=== PATIENT | male | born 1950 | race Caucasian/White ===

== ENCOUNTER 2017-08-02 08:32 | Outpatient (CLI) | payer MEDICARE ==
[2017-08-02] MEDS ORDERED: Iopamidol 370 76% 100 ML VIAL ONE (09:00)
[2017-08-02 09:35] LABS: Estimated GFR-MDRD - POC Greater than 90
--- NOTE | 2017-08-02 11:54 | CT ---
CT ABDOMEN WITH AND WITHOUT IV CONTRAST CT PELVIS WITH AND WITHOUT IV CONTRAST: DATE: 08/02/17. HISTORY: Bilateral back pain more severe on the right with hematuria. CONTRAST: 99 mL of Isovue 370 IV contrast. COMPARISON: None available. FINDINGS: There is a calcified granuloma at the left lung base. Postsurgical changes of the stomach are noted which may relate to gastric sleeve procedure. There are subcentimeter too small to characterize hypodense lesions in each kidney. There is an appr oximately 1.4 cm calculus seen within an infundibulum in the mid portion of the right kidney with rox yceal dilatation at the level of the calculus. There is also a punctate nonobstructing calculus in t he inferior pole right kidney. No ureteral calculus is visualized bilaterally. Urinary bladder is d ecompressed but otherwise grossly normal in appearance. There is no hydronephrosis present on the le ft. The liver, spleen, pancreas, bilateral adrenal glands, abdominal aorta, and urinary bladder demonstra te a normal CT appearance. There is mild dilatation of the common iliac artery which measures 2 cm. The right common iliac albin ry is ectatic. There is minimal calcification seen in the femoral arteries. There is colonic diverticulosis. There is a small fat-containing umbilical hernia. The distal porti on of the appendix extends into the small umbilical hernia. However, the appendix is normal in calib er and there are no CT findings to suggest appendicitis. There is no free fluid, fluid collection, or lymphadenopathy seen in the abdomen or pelvis. IMPRESSION: 1. Calculus within a mid portion right renal infundibulum which results in subsequent mild calyceal dilatation. This calculus measures 1.4 cm. There are a few punctate nonobstructing calculi seen wit hin the mid portion inferior pole right kidney. 2. Subcentimeter too small to characterize hypodense lesions in each kidney. 3. No ureteral calculus is seen. 4. Colonic diverticulosis. 5. Small predominantly fat-containing umbilical hernia, but the appendix does extend into the hernia defect without CT evidence of appendicitis. 6. Mild dilatation of the left common iliac artery with ectasia of the right common iliac artery. 7. Colonic diverticulosis. POS: [facility]
== END 2017-08-02 08:33 | disposition home or self-care (01) ==
LOC: SCSCT 08:32
PROVIDERS: ATTEND Family Medicine
DX: N30.01 Acute cystitis with hematuria (principal); N20.0 Calculus of kidney; K42.9 Umbilical hernia without obstruction or gangrene; K57.30 Diverticulosis of large intestine without perforation or abscess without bleeding; N28.9 Disorder of kidney and ureter, unspecified
CPT/HCPCS: 74178

== ENCOUNTER 2017-08-13 17:51 | Emergency (ER) | payer MEDICARE | END 2017-08-13 18:55 | disposition home or self-care (01) | LOC: SCSER 17:51 | DX: J11.1 Influenza due to unidentified influenza virus with other respiratory manifestations (principal); I10 Essential (primary) hypertension; J44.9 Chronic obstructive pulmonary disease, unspecified; F17.220 Nicotine dependence, chewing tobacco, uncomplicated; Z79.899 Other long term (current) drug therapy | CPT/HCPCS: 99283 ==

== ENCOUNTER 2018-02-07 15:11 | Outpatient (CLI) | payer MEDICARE ==
--- NOTE | 2018-02-07 18:36 | MRI ---
MRI LUMBAR SPINE NONCONTRAST: HISTORY: Back pain. Compression fracture. FINDINGS: Since the prior study of 07/31/2016, compression of the L5 vertebral body has occurred, with loss of height by approximately 30%. Increased T2 signal and diminished T1 signal is present throughout the vertebral body, without extension into the pedicles. No significant retropulsion compared to the oth er lumbar levels. Partial chronic compressions of the other lumbar vertebral bodies are stable. T12-L1: Osteophytosis. The central canal and neural foramina are patent. L1-L2: Posterior disk bulge and circumferential degenerative changes. Moderate stenosis of the cent ral canal. Mild stenosis of each neural foramen. L2-L3: Disk space narrowing. Posterior disk bulge and circumferential degenerative changes with sev ere stenosis of the central canal. Severe right and moderate left foraminal stenosis. L3-L4: Posterior disk bulge, Circumferential degenerative changes with severe stenosis of the centr al canal and each neural foramen. L4-L5: Posterior disk bulge. Circumferential degenerative changes with mild stenosis of the central canal and severe stenosis of each neural foramen. L5-S1: Minimal disk bulge. The thecal sac is patent. Degenerative changes with severe stenosis of each neural foramen. IMPRESSION: 1. Acute compression deformity of the L5 vertebral body. Other lumbar vertebral body compressions a re stable and chronic appearing. 2. Prominent multilevel degenerative changes throughout the lumbar spine, including severe central c anal and foraminal stenosis, as detailed above. POS: [facility]
== END 2018-02-07 15:12 | disposition home or self-care (01) ==
LOC: MRI 15:11
PROVIDERS: ATTEND Anesthesiology Pain Medicine
DX: S32.050A Wedge compression fracture of fifth lumbar vertebra, initial encounter for closed fracture (principal); M47.896 Other spondylosis, lumbar region; M48.061 Spinal stenosis, lumbar region without neurogenic claudication; M99.83 Other biomechanical lesions of lumbar region; M47.897 Other spondylosis, lumbosacral region
CPT/HCPCS: 72148

== ENCOUNTER 2018-02-10 20:49 | Emergency (ER) | payer MEDICARE ==
[2018-02-10 21:26] LABS: #Basophils 0.1 thou/uL (0.0-0.2); #Eosinphils 0.3 thou/uL (0.0-0.7); #Lymphocytes 1.3 thou/uL (1.20-3.40); #Monocytes 0.4 thou/uL (0.11-0.59); %Basophils 1.8 % (0.0-1.0); %Lymphocytes 32.2 % (21.0-51.0); %Monocytes 9.8 % (0.0-10.0); %Neutrophils 49.2 % (42.0-75.0); Hemoglobin 14.3 g/dL (14.0-18.0); Mean Corpuscular HGB CONC 35.1 g/dL (32.0-36.0); Mean Corpuscular Hemoglobin 30.9 pg (27.0-31.0); Mean Platelet Volume 8.1 fL (7.4-10.4); Platelet Count 166 thou/uL (130-400); RBC Distribution Width 11.4 % (11.5-14.5); Red Blood Cell (RBC) Count 4.63 mill/uL (4.70-6.10)
[2018-02-10 21:38] LABS: Anion Gap 14 mmol/L (10-20); BUN (Urea Nitrogen) 8 mg/dL (8.4-25.7); Calc. Creatinine Clearance 0 mL/min (70-130); Carbon Dioxide 24 mmol/L (23-31); Chloride 107 mmol/L (98-107); Estimated GFR-MDRD Greater than 90; Glucose 78 mg/dL (80-115); Potassium 3.5 mmol/L (3.5-5.1); Sodium 141 mmol/L (136-145)
--- NOTE | 2018-02-10 22:39 | ULT ---
BILATERAL LOWER EXTREMITY VENOUS DOPPLER ULTRASOUND: 02/10/18 HISTORY: Swelling, pain, edema and redness in the lower extremity bilaterally . FINDINGS: There is good flow, compression, and augmentation noted in the left common femoral, femoral, deep fem oral, popliteal, posterior tibial and greater saphenous veins. There is partial compression with trickle flow in the right proximal vein due to intermittent thrombu s. The remainder of the deep venous system of the right lower extremity is otherwise patent. IMPRESSION: DVT in the right lower extremity. ER physician, Dr. Fer Hickman was notified of the results at 10:30 p.m. POS: [facility]
[2018-02-10] MEDS ORDERED: Apixaban 5 MG TAB ONE (22:42)
== END 2018-02-10 22:54 | disposition home or self-care (01) ==
LOC: SCSER 20:49
DX: I82.411 Acute embolism and thrombosis of right femoral vein (principal); I10 Essential (primary) hypertension; J44.9 Chronic obstructive pulmonary disease, unspecified; F17.220 Nicotine dependence, chewing tobacco, uncomplicated; Z79.899 Other long term (current) drug therapy
CPT/HCPCS: 36415; 80048; 83880; 85025; 93970

== ENCOUNTER 2018-04-07 13:39 | Outpatient (CLI) | payer MEDICARE ==
--- NOTE | 2018-04-07 14:58 | CT ---
CT CHEST WITHOUT CONTRAST: Date: 04-07-18 Provided Clinical History: Right upper lobe mass. FINDINGS: Comparison is made with the study dated 02-26-18. The heart, pericardium, and great vessels are suboptimally evaluated in the absence of IV contrast ma terial but demonstrate an unremarkable, unenhanced CT appearance with the exception of vascular calci fication including coronary calcium. Evaluation for thoracic lymph node enlargement is limited, witho ut gross evidence for such. Primarily pleural based opacity is present at the left lung apex. The consolidation and interstitial opacity seen within the left upper lobe on the prior examination has much improved. There is gas dens ity present at the left lung apex, presumably in the region of the pleura and may reflect pre-existin g bullous change with surrounding infection. Emphysematous changes are again noted at both lung apice s. There has been interval resolution of the left pleural effusion. There is no right pleural fluid. The visualized portions of the upper abdomen demonstrate an unchanged CT appearance. The osseous structures demonstrate no concerning lytic or blastic lesions. IMPRESSION: 1. Interval improvement in the pleural and parenchymal opacity at the left lung apex presumably refle cting a resolving infectious process. Atypical infectious etiologies such as TB should be considered. 2. Interval resolution of left pleural effusion. POS: [facility]
== END 2018-04-07 13:40 | disposition home or self-care (01) ==
LOC: BICCT 13:39
PROVIDERS: ATTEND Internal Medicine Critical Care Medicine
DX: R91.8 Other nonspecific abnormal finding of lung field (principal); J18.9 Pneumonia, unspecified organism
CPT/HCPCS: 71250

== ENCOUNTER 2018-06-07 10:06 | Outpatient (CLI) | payer MEDICARE ==
--- NOTE | 2018-06-07 15:39 | RAD ---
THREE VIEWS RIGHT WRIST: INDICATIONS: Pain. FINDINGS: There is evidence of prior ulnar styloid avulsion. Plate and screw fixation is present at the distal radius. No acute hardware complication is visualized. There is skeletal demineralization. IMPRESSION: Postoperative and posttraumatic right wrist. No definite acute process is seen. POS: [facility]
== END 2018-06-07 10:07 | disposition home or self-care (01) ==
LOC: SCSRAD 10:06
PROVIDERS: ATTEND Family Medicine
DX: M25.531 Pain in right wrist (principal); Z98.890 Other specified postprocedural states

== ENCOUNTER 2018-06-18 16:57 | Inpatient (IN) | payer MEDICARE ==
[~2018-06-18 16:57] MED LIST: Iopamidol 370 76% 100 ML VIAL ONE
[2018-06-18] MEDS ORDERED: methylPREDNISolone Sod Succ/PF 125 MG/2 ML VIAL ONE (17:22)
--- NOTE | 2018-06-18 17:36 | RAD ---
PORTABLE AP CHEST X-RAY 06/18/18 HISTORY: Dyspnea, low grade fever and cough and decreased appetite. COMPARISON: 03/01/18. FINDINGS: The cavitary lesion within the left upper lung zone and left lung apex has resolved. There is pleural based density at the left lung apex which could be related to pleural and parenchymal scarring now p resent in this region. The right lung is clear. There is minimal atelectasis versus scarring at the l eft lung base. The cardiac silhouette and pulmonary vasculature are within normal limits. No other in terval change. IMPRESSION: Resolution of cavitary lesion in the left lung apex with pleural based density at the left lung apex on the current study which may be related to pleural and parenchymal scarring. There is otherwise no acute cardiopulmonary process. POS: [facility]
[2018-06-18 17:42] LABS: Band 29 % (5-11); Lymphocytes 10 % (21-51); MDiff Complete? YES; Mean Corpuscular HGB CONC 33.1 g/dL (32.0-36.0); Mean Corpuscular Hemoglobin 29.2 pg (27.0-31.0); Mean Corpuscular Volume 88.3 fL (78.0-98.0); Mean Platelet Volume 7.7 fL (7.4-10.4); Monocytes 7 % (0-10); Neutrophil 52 % (42-75); PLT Morphology Comment Appears Adequate; Platelet Count 201 thou/uL (130-400); RBC Distribution Width 11.9 % (11.5-14.5); Reactive Lymphocytes 2 % (0-10); Red Blood Cell (RBC) Count 6.17 mill/uL (4.70-6.10); White Blood Cell (WBC) Count 14.2 thou/uL (4.8-10.8)
[2018-06-18 17:43] LABS: ALT (SGPT) 22 U/L (8-55); AST (SGOT) 53 U/L (5-34); Albumin 3.9 g/dL (3.4-4.8); Alkaline Phosphatase 62 U/L (40-150); Anion Gap 16 mmol/L (10-20); BUN (Urea Nitrogen) 21 mg/dL (8.4-25.7); Bilirubin, Total 0.8 mg/dL (0.2-1.2); CK (CPK) 648 U/L (30-200); Calc. Creatinine Clearance 0 mL/min (70-130); Carbon Dioxide 29 mmol/L (23-31); Chloride 99 mmol/L (98-107); Estimated GFR-MDRD 75; Globulin 3.5 g/dL (2.4-3.5); Glucose 98 mg/dL (80-115); Potassium 3.8 mmol/L (3.5-5.1); Protein, Total 7.4 g/dL (5.8-8.1); Sodium 140 mmol/L (136-145)
[2018-06-18 17:44] LABS: CKMB 21.3 ng/mL (0-6.6)
[2018-06-18 19:05] LABS: Bilirubin Negative (Negative); Blood, Urine Large (Negative); Clarity Cloudy (Clear); Glucose, Urine (Dipstick) Negative (Negative); Leukocyte Negative (Negative); Nitrite Negative (Negative); Protein, Urine (Dipstick) 100 mg/dL (Neg-Trace); Urobilinogen 0.2 mg/dL (0.2-1.0); pH, Urine 5.5 (5.0-9.0)
[2018-06-18 19:07] LABS: Specific Gravity, Urine Greater than 1.035 (1.002-1.036)
[2018-06-18 19:12] LABS: Bacteria/HPF 2+ HPF (None Seen); Hyaline Casts/LPF 0-3 HYALINE CAST LPF (0-3 Hyaline); Other Casts/LPF 0-3 FINELY GRAN LPF (0-3 Hyaline); RBC/HPF GREATER THAN 50-TNTC HPF (0-3); Squamous Epithelial 0-3 HPF (0-3)
[2018-06-18 19:13] LABS: Renal Epithelial 0-3 HPF (0-3)
--- NOTE | 2018-06-18 19:35 | CT ---
CT ANGIOGRAM THORAX WITH IV CONTRAST AND 3D RECONSTRUCTIONS CT ABDOMEN AND PELVIS WITH IV CONTRAST 06/18/18 HISTORY: Dyspnea, diarrhea and low grade fever as well as cough and decreased appetite. Right sided pain after a fall one day ago. COMPARISON: CT thorax on 04/07/18. CT ANGIOGRAM THORAX: There is consolidation present at the right lung base with patchy densities and areas of consolidatio n at the left lung base. Findings may be related to aspiration pneumonitis or bibasilar pneumonia and atypical pneumonia is possibility. The pleural and parenchymal changes in the left lung apex are aga in seen, but the previously seen area of cavitation is no longer visualized. Residual pleural and par enchymal changes could be related to pleural and parenchymal scarring. Emphysematous changes are again seen within the upper lobes bilaterally. No filling defects are seen in the pulmonary arteries to suggest a pulmonary embolus. The thoracic ao rta is normal in caliber without evidence of an aortic dissection. Calcified mediastinal and left hilar lymph nodes are present related to prior granulomatous disease. There is evidence of a small hiatal hernia. Postsurgical changes of the stomach are noted which may b e related to prior gastric sleeve procedure. No enlarged lymph nodes are seen by CT size criteria. No other interval change from prior exam. CT ABDOMEN AND PELVIS: Postsurgical changes of the stomach are seen which may be related to gastric sleeve procedure. Small hiatal hernia is present. Several subcentimeter too small to characterize hypodense lesions are seen in each kidney. There is a calculus measuring 14 mm in the right renal pelvis. No hydronephrosis is present, although there is minimal caliectasis in the inferior pole right kidney. The liver, spleen, pancreas, bilateral adrenal glands, and urinary bladder demonstrate a normal CT ap pearance. There is colonic diverticulosis present. The cecum extends to the midline at the level of the umbilicus. The appendix is visualized and normal in caliber. Loops of small bowel are normal in caliber. Minimal vascular calcifications are seen in the abdominal aorta as well as involving the visualized f emoral arteries. No free fluid, fluid collection, or lymphadenopathy is seen in the abdomen or pelvis. Multilevel degenerative changes are seen in the spine. There is height loss involving the L2 through L5 vertebral bodies, but this finding was seen on prior CT of the lumbar spine on 07/19/16, but the deg ree of height of the L5 vertebral body has increased from that exam. IMPRESSION: 1. Bibasilar patchy densities as well as areas of consolidation. Findings may be related to biba silar pneumonia and atypical pneumonia is a possibility. There are filling defects seen within a few right lower lobe bronchi and subsequent aspiration pneumonitis is a possibility. 2. Improvement in pleural and parenchymal change at the left lung apex and previously noted gas density in the cavitary lesion has resolved with only a punctate focus of gas density now present. Th e findings may be related to residual changes with pleural and parenchymal scarring on the current st udy. 3. COPD. 4. No acute findings in the abdomen or pelvis. 5. Calculus right renal pelvis measuring 1.4 cm. 6. Subcentimeter too small to characterize hypodense lesions in each kidney. 7. Postsurgical change of the stomach. There is evidence of a small hiatal hernia. 8. Colonic diverticulosis. 9. Vertebral body height loss related to compression fractures involving the L2 through L5 verte bral bodies. The degree of height loss at the L5 vertebral body has increased from this study on . POS: [facility]
[2018-06-18] MEDS ORDERED: Acetaminophen 325 MG TAB PO PRN (20:32)
[2018-06-18] MEDS ORDERED: Prevnar 13-Val Conj/PF 0.5 ML SYRINGE IM ONE (21:00)
[2018-06-18] MEDS: Sodium Chloride 0.9% 1,000 ML IV SCH (21:45)
[2018-06-19] MEDS ORDERED: Ondansetron PF 4 MG/2 ML Vial IVP PRN
[2018-06-19] MEDS: Sodium Chloride 0.9% 1,000 ML IV SCH (04:08)
[2018-06-19 06:20] LABS: Anion Gap 8 mmol/L (10-20); BUN (Urea Nitrogen) 16 mg/dL (8.4-25.7); Calc. Creatinine Clearance 145 mL/min (70-130); Carbon Dioxide 28 mmol/L (23-31); Chloride 105 mmol/L (98-107); Estimated GFR-MDRD Greater than 90; Glucose 139 mg/dL (80-115); Potassium 3.6 mmol/L (3.5-5.1); Sodium 137 mmol/L (136-145)
[2018-06-19 08:03] LABS: #Lymphocytes 0.7 thou/uL (1.20-3.40); #Monocytes 0.2 thou/uL (0.11-0.59); #Neutrophils 7.8 thou/uL (1.40-6.50); %Eosinophils 0.2 % (0.0-10.0); %Lymphocytes 7.9 % (21.0-51.0); %Monocytes 1.9 % (0.0-10.0); Hemoglobin 15.1 g/dL (14.0-18.0); Mean Corpuscular HGB CONC 31.3 g/dL (32.0-36.0); Mean Corpuscular Hemoglobin 29.9 pg (27.0-31.0); Mean Corpuscular Volume 95.5 fL (78.0-98.0); Mean Platelet Volume 7.3 fL (7.4-10.4); Platelet Count 191 thou/uL (130-400); RBC Distribution Width 12.2 % (11.5-14.5); Red Blood Cell (RBC) Count 5.04 mill/uL (4.70-6.10); White Blood Cell (WBC) Count 8.7 thou/uL (4.8-10.8)
--- NOTE | 2018-06-19 08:11 | RAD ---
LEFT FOOT RADIOGRAPHS 3 VIEWS: DATE: 06/19/2018. PROVIDED CLINICAL HISTORY: Status post fall. 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 There is a linear radiolu cency seen involving the junction of the navicular and cuboid posteriorly that could reflect an incom plete coalition versus superimposed fracture. There is prominent subtalar degenerative change with p oor definition to the posterior subtalar joint which could reflect fusion. Alignment appears otherwi se anatomic. Joint spaces appear preserved. IMPRESSION: 1. Findings suggesting fusion at the navicular-cuboid relationship with possible superimposed nondis placed fracture. 2. 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 POS: [facility]
[2018-06-19] MEDS: Apixaban 5 MG TAB PO SCH ×2 (08:37→21:43)
[2018-06-19] MEDS: Guaifenesin DM 100-10/5 ML UDCUP PO PRN ×2 (16:45→21:43)
[2018-06-19] MEDS ORDERED: Morphine 4 MG/ML VIAL SLOW IVP PRN (18:23)
--- NOTE | 2018-06-19 18:31 | PDOC.EVN ---
Event Note - Event Note Event Note: Patient inadvertently admitted to [facility] [place] but followed by Dr. Facundo Chisholm. Discussed with Dr. Cho on-call coverage for Dr. Chisholm who accepts transfer of care today.
[2018-06-19] MEDS ORDERED: Acetaminophen 500 MG TAB PO PRN (18:56)
--- NOTE | 2018-06-19 22:24 | HP ---
PRIMARY CARE PROVIDER: Dr. Chisholm. LIFESTYLE CONSULTANT: Dr. George. CODE STATUS: Full code. TIME OF EVALUATION: 10:00 p.m. CHIEF COMPLAINT: Shortness of breath. HISTORY OF PRESENT ILLNESS: This is a 68-year-old male patient with past medical history of COPD and hypertension, came to the hospital after having shortness of breath. Symptoms were severe. No clear triggers, no alleviating factors has been present for the past few days, associated with diarrhea and low-grade fever. The patient reported also green sputum. Symptoms have been gradually worsening. REVIEW OF SYSTEMS: CONSTITUTIONAL: The patient reports recent chills. No fever or generalized weakness. RESPIRATORY: Cough, sputum production that was green, shortness of breath. CARDIOVASCULAR: No chest pain or palpitations. GASTROINTESTINAL: No nausea, no vomiting, diarrhea, or abdominal pain. EXPERIENCE PLANNING STRATEGIST: No dizziness, headache, or feeling lightheaded. GENITOURINARY: No burning on urination. EXTREMITIES: No leg swelling. All other systems were reviewed and negative expect for the findings as mentioned above. PAST MEDICAL HISTORY: As mentioned in HPI. FAMILY HISTORY: Reviewed and noncontributory to current presentation. SOCIAL HISTORY: The patient drinks every day, less than 5 drinks per day. No drug use. The patient has used tobacco. PAST SURGICAL HISTORY: Gastric sleeve, bilateral knee, left graft, left shoulder, heart cath. KNOWN ALLERGIES: No known drug allergies reported. MEDICATIONS: 1. Combivent. 2. Aerosol With Adapter. 3. Eliquis 5 mg 2 tablets 2 times a day. PHYSICAL EXAMINATION: VITAL SIGNS: On presentation, blood pressure 117/81 with heart rate 130, respiratory rate was 32, pain was 10/10, oxygen saturation was 85% on room air. GENERAL APPEARANCE: The patient is alert, oriented, not in acute distress. HEENT: Eyes, normal conjunctivae. Moist oral mucosa. Anicteric. No JVD. RESPIRATORY: Bilateral air entry decreased. The patient has scattered wheezing. No rales. Symmetric expansion. CARDIOVASCULAR: Normal rate, regular rhythm. No murmurs. No gallops. No edema. ABDOMEN: Soft. Normal bowel sounds. MUSCULOSKELETAL: He got baseline range of motion and strength. No tenderness. SKIN: Warm and intact. No pallor. No rash. No redness. EXTREMITIES: Peripheral pulses are present. Capillary refill seems to be intact. NEUROLOGIC: No evidence of any new focal weakness. Baseline speech. Cranial nerves seems to be intact. PSYCHIATRIC: The patient is in good mood. No anxiety. Oriented. Optimal judgement. IMAGING STUDIES: EKG was reviewed. The patient has sinus tachycardia at a rate of 119. No ST elevation. No specific T-wave inversion for ischemia. Chest CT was done which show bilateral pneumonia. No pulmonary embolism. LABORATORY DATA: Labs were reviewed. The patient has white count of 14.2, hemoglobin 18, MCV 88, and platelet count 101. D-dimer 3.48. Chemistries; sodium 140, potassium 3.8, chloride 99, carbon dioxide 28, anion gap 16, BUN 21, creatinine 1.0, GFR 75, glucose 98, lactic acid 1.5, calcium 10. AST 53, ALT 22, alkaline phosphatase 62. CK 348. Troponin 0.04. Beta natriuretic peptide is Albumin-globulin ratio is 1.1. Urine was reviewed; the patient has white count of 11 to 20 and ketones 15. ASSESSMENT AND PLAN: The patient was placed in the hospital with the following medical problems: 1. Bilateral pneumonia. The patient is being started on antibiotics and we will continue for now. We will follow cultures. We will adjust treatment as per sensitivity. 2. Chronic obstructive pulmonary disease exacerbation. The patient has scattered wheezing. The patient has been exacerbated likely secondary to pneumonia. The patient has been started on nebs, antibiotics, and bronchodilators. The patient's is Dr. George, so the patient needed, if needed, he may be consulted. 3. Sepsis. The patient has leukocytosis with tachycardia, tachypnea, and associated with pneumonia. Treatment as above. 4. Positive D-dimer 3.48, likely secondary to infection. Pulmonary embolism has been ruled out with CAT scan. 5. [id number] myocardial infarction, type 2. The patient has troponin of 0.040, likely secondary to underlying hypoxia and pneumonia. 6. Acute hypoxic respiratory failure. The patient was found to be with oxygen saturation in the 80s on room air, needing oxygen by nasal cannula to improve saturation. We will monitor. This is likely secondary to pneumonia. We will treat underlying condition. 7. Urinary tract infection. The patient has positive white count . The patient is started on antibiotics. We will follow cultures, we will adjust treatment as needed. 8. Deep venous thrombosis prophylaxis. 9. Hypertension, it is chronic, controlled, reconcile medications, adjust treatment as needed. We will not treat aggressively due to underlying sepsis and risk for septic shock. Job ID: [id number]
[2018-06-20 00:42] LABS: Troponin I 0.018 ng/mL (< 0.028)
[2018-06-20 06:07] LABS: #Lymphocytes 0.5 thou/uL (1.20-3.40); #Monocytes 0.3 thou/uL (0.11-0.59); #Neutrophils 13.9 thou/uL (1.40-6.50); %Eosinophils 0.2 % (0.0-10.0); %Lymphocytes 3.1 % (21.0-51.0); %Monocytes 1.8 % (0.0-10.0); %Neutrophils 94.9 % (42.0-75.0); Hemoglobin 15.1 g/dL (14.0-18.0); Mean Corpuscular HGB CONC 32.5 g/dL (32.0-36.0); Mean Corpuscular Hemoglobin 30.7 pg (27.0-31.0); Mean Corpuscular Volume 94.6 fL (78.0-98.0); Mean Platelet Volume 7.2 fL (7.4-10.4); Platelet Count 213 thou/uL (130-400); RBC Distribution Width 12.2 % (11.5-14.5); White Blood Cell (WBC) Count 14.7 thou/uL (4.8-10.8)
[2018-06-20 06:47] LABS: Anion Gap 9 mmol/L (10-20); BUN (Urea Nitrogen) 15 mg/dL (8.4-25.7); Calc. Creatinine Clearance 144 mL/min (70-130); Calcium 9.4 mg/dL (7.8-10.44); Carbon Dioxide 28 mmol/L (23-31); Chloride 103 mmol/L (98-107); Estimated GFR-MDRD Greater than 90; Glucose 140 mg/dL (80-115); Potassium 3.6 mmol/L (3.5-5.1); Sodium 136 mmol/L (136-145)
[2018-06-20 06:54] LABS: Troponin I 0.016 ng/mL (< 0.028)
[2018-06-20] MEDS: Apixaban 5 MG TAB PO SCH ×2 (08:35→20:23)
--- NOTE | 2018-06-20 12:09 | PRG ---
DATE OF SERVICE: 06/19/2018 HISTORY OF PRESENT ILLNESS: The patient was admitted to Hospitalist Service. The patient's PCP is Dr. Facundo Chisholm, was handed off to myself today for continuing treatment of patient's pneumonia and COPD exacerbation. The patient with known history of monitored lung nodule with Pulmonary on an outpatient basis, does not appeared to be complicated on this hospital admission, history of DVT, maintained on Eliquis without reports of bleeding. The patient did fall with left great toe pain. The patient denies history of gout. White blood cell count improved overnight to 8.7. D-dimer was elevated, but CT chest did not show any blood clots. Creatinine is 0.62. Blood cultures at 12-hour growth negative. Influenza negative. Foot x-ray reviewed, changes consistent with remote injury. The patient fell in a hole and twisted his ankle quite sometime ago with finding of fusion of navicular-cuboid, could not rule out nondisplaced fracture overlying. The patient's pain is exquisitely to great toe, however. Review of vital signs; temperature is 99.9, pulse of 89, respiratory rate of 17, and oxygen saturation of 92% on 3 L of nasal cannula. The patient is normally on 2 L nasal cannula p.r.n. at night only, not during the day, currently requiring 3 L during the day. PHYSICAL EXAMINATION: GENERAL: The patient is alert and oriented, in no acute distress. HEENT: Head is normocephalic and atraumatic. Extraocular movements are intact. Sclerae white. Oral mucosa is moist. Nasal cannula in place. NECK: Supple. HEART: Regular rate and rhythm. No murmurs are auscultated. LUNGS: Clear to auscultation bilaterally. No rubs or wheezes. Moderate air expansion. ABDOMEN: Soft. Positive bowel sounds throughout. No guarding or rebound. EXTREMITIES: Lower extremities without cyanosis or edema. Left great toe with pain to interphalangeal joint. No pain around bilateral malleoli. The patient states that he has difficulty with weightbearing, but has not done much today, getting in and out of bed and staying on oxygen. ASSESSMENT AND PLAN: 1. Pneumonia. 2. Chronic obstructive pulmonary disease exacerbation. 3. Left great toe pain. 4. History of deep venous thrombosis, status post gait instability and fall. 5. Elevated troponin. The patient continued on antibiotics, steroids, and breathing treatments. We will check uric acid in the morning. The patient denies any formal chest pains. No reported EKG changes. May look at trending troponins. We will hand off to Dr. Facundo Chisholm in the morning. The patient is currently stable. Job ID: [id number]
--- NOTE | 2018-06-20 12:36 | CON ---
DATE OF CONSULTATION: HISTORY OF PRESENT ILLNESS: A 68-year-old gentleman, who sees Dr. George in our office, presented with a several day history of diarrhea after he ate some kind of a meat fadia. He got severe diarrhea, then eventually passed out at home. He has had vague chest pain, difficulty breathing, coughing, and wheezing. Initial chest x-ray did not show any acute infiltrates. His oxygen saturation on room air was 85 when he arrived. Blood pressure was 117/81, pulse was 120, and respiratory rate was 32. He is now admitted. This morning, he said he is feeling better. He was coughing some green sputum yesterday. This morning it is white. Most days he can barely walk 50 feet without getting markedly short of breath. PAST MEDICAL HISTORY: Hypertension, coronary artery disease, and COPD. PAST SURGICAL HISTORY: Bilateral knee, gastric sleeve several years ago, left hip graft, left shoulder surgery, and cardiac cath. SOCIAL HISTORY: Alcohol, 5 drinks a day. Tobacco smoking, quit years ago. Still chews tobacco though. MEDICATIONS: List of medicine from home: 1. Prednisone 20. 2. DuoNeb. 3. Spiriva Respimat. 4. Eliquis 5 twice a day. 5. Since admission, he started on Solu-Medrol, neb treatment, and Levaquin. ALLERGIES: NONE. FAMILY HISTORY: Unremarkable. REVIEW OF SYSTEMS: Otherwise, 10-point negative. PHYSICAL EXAMINATION: VITAL SIGNS: His blood pressure is 114/71, sats are 90 on 4 L, temperature is 97, pulse 91, respirations 20. CHEST: Decreased breath sounds. No wheezing. CARDIAC: Normal S1 and S2. No gallops. ABDOMEN: No masses. IMPRESSION: 1. Chronic obstructive pulmonary disease exacerbation, bronchitis. 2. Diarrhea, probably aggravated by intake of some meat fadia. 3. . 4. Abnormal CT suggestive of chronic bibasilar infiltrates. PLAN: Continue steroids, neb treatments, and antibiotics. We will notify Dr. George. TIME SPENT: This is a consultation note, 70 minutes, of which 50% in direct patient care. Job ID: [id number]
--- NOTE | 2018-06-20 13:19 | PRG ---
DATE OF SERVICE: 06/20/2018 SUBJECTIVE: Mr. Barahona is sitting up in bed. He still complains of some shortness of breath. OBJECTIVE: VITAL SIGNS: O2 saturation 96% on 3 L and temperature 97.6. LUNGS: Bilateral breath sounds. Some wheezing is noted bilaterally. HEART: Reveals a regular rate and rhythm. No murmurs, gallops, or rubs. LABORATORY DATA: His hemoglobin 15.1, hematocrit 46.4, white blood count 14.7. Electrolyte pattern is within normal limits. Blood cultures, no growth today. It is noted his admission chest x-ray showed resolution of previous cavitary lesion in left lung apex. CT scan of the chest densities or consolidation may be related to some type of pneumonia. IMPRESSION: A 68-year-old male with pulmonary fibrosis with history of pneumonia and chronic obstructive pulmonary disease. PLAN: He is currently on IV antibiotics, Levaquin, as well as methylprednisolone. We will go and consult Pulmonary stated in the past. Job ID: [id number]
[2018-06-20 14:43] VITALS: BMI 30.3
[2018-06-20] MEDS: Mometasone/Formoterol 120 PUFF INHALER INH SCH (19:02)
[2018-06-20] MEDS: Guaifenesin DM 100-10/5 ML UDCUP PO PRN (20:23)
[2018-06-20] MEDS ORDERED: Calcium Carbonate 500 MG ChewTAB PO PRN (21:05)
[2018-06-21] MEDS: Mometasone/Formoterol 120 PUFF INHALER INH SCH ×2 (06:56→18:33)
[2018-06-21] MEDS: Apixaban 5 MG TAB PO SCH ×2 (09:13→20:23)
--- NOTE | 2018-06-21 10:10 | PQF ---
CLINICAL DOCUMENTATION IMPROVEMENT CLARIFICATION FORM: ICD-10 Updated PLEASE DO AN ADDENDUM TO THE PROGRESS NOTE WITH ANY DOCUMENTATION UPDATES OR ADDITIONS AND CARRY THROUGH TO DC SUMMARY. THANK YOU. DATE: 06/21/18 ATTN: Dr. Chisholm Please exercise your independent, professional judgment in responding to the clarification form. Clinical indicators are provided on the bottom of this form for your review Please check appropriate box(s) to clarify if the following diagnosis has been ruled in or ruled out: SEPSIS [ ] Ruled in diagnosis [ ] Continue to treat [ ] Resolved [ x ] Ruled out diagnosis [ ] Cannot rule out diagnosis [ ] Other diagnosis [ ] Unable to determine In addition, please specify: Present on Admission (POA): [ ] Yes [ ] No [ ] Unable to determine For continuity of documentation, please document condition throughout progress notes and discharge summary. Thank You. CLINICAL INDICATORS - SIGNS / SYMPTOMS / LABS H&P 06/18: BP 117/81 HR 130 RR 32 O2 sat 85% on RA WHITE COUNT 14.2 BILATERAL PNEUMONIA COPD EXACERBATION SEPSIS POSITIVE D-DIMER 3.48 LIKELY 2/2 INFECTION. RISKS: H&P: HX OF COPD AND HTN. BILATERAL PNEUMONIA, COPD EXACERBATION ACUTE HYPOXIC RESPIRATORY FAILURE. TREATMENT: ORDER 06/18: LEVAQUIN 750 MG IV. DC'D 06/21. ORDER 06/21: LEVAQUIN 750 MG PO DAILY Thank you, Candy (This form is maintained as a part of the permanent medical record) 2014 [employer]. All Rights Reserved Candy Ferro RN, BSN [email or web address] Office: [phone] [facility]
--- NOTE | 2018-06-21 10:37 | PRG ---
DATE OF SERVICE: 06/21/2018 SUBJECTIVE: Mr. Barahona is doing well and wants to go home. OBJECTIVE: VITAL SIGNS: On exam, temperature 97.8, pulse 89, respirations 16, O2 saturation 93% on 3 L, and blood pressure 133/75. HEENT: Unremarkable. NECK: No JVD. LUNGS: He has a few inspiratory crackles in the bases. CARDIAC: S1 and S2, regular. ABDOMEN: Soft. He has a bruise over his right flank. EXTREMITIES: No clubbing, cyanosis, or edema. LABORATORY DATA: White blood cell count 14.7, hematocrit 46.4, and platelet count 213. Sodium 136, potassium 3.6, BUN 15, creatinine 0.6, and glucose 114. I reviewed the CT of the chest. Notably, the left upper lobe infiltrate/abscessed area has improved, is now more or less a peripheral scar. I am not impressed with any new findings in the bases, and I doubt this represents pneumonitis. ASSESSMENT: 1. Chronic obstructive pulmonary disease, severe, but clinically stable. 2. Wondering somewhat about chronic aspiration causing some of his pulmonary issues. 3. Status post fall with injury to the right flank. 4. Bruised toe. PLAN: The patient can be placed on oral antibiotics. I will also change him over to oral steroids. If he does well today, he can go home tomorrow. Job ID: [id number]
[2018-06-21] MEDS: Guaifenesin DM 100-10/5 ML UDCUP PO PRN (13:45)
--- NOTE | 2018-06-21 13:54 | PRG ---
DATE OF SERVICE: 06/21/2018 SUBJECTIVE: Mr. Barahona appears to be breathing better. He still complained of foot pain. OBJECTIVE: VITAL SIGNS: O2 saturation is 91% on 3 L, pulse 84, and temperature 97.4. LUNGS: Revealed bilateral breath sounds. Occasional wheezes. No rales are appreciated today. HEART: Reveals a regular rate and rhythm. No murmurs, gallops, or rubs. : He does appear to have some blood in his urine. He does have a calculus in the right renal pelvis measuring 1 to 1.4 cm. This does not appear to be causing acute pain. IMPRESSION: 1. Pneumonia. 2. Chronic obstructive pulmonary disease. 3. Possible fracture of the left foot. PLAN: We will continue current treatment. Await Dr. George's further input. We are going to get Orthopedic consult to look at his left foot. Job ID: [id number]
--- NOTE | 2018-06-21 16:21 | CON ---
DATE OF CONSULTATION: 06/21/2018 REQUESTING PHYSICIAN: Facundo Chisholm MD CONSULTING PHYSICIAN: Cesar Tiwari MD REASON FOR CONSULTATION: Left foot pain and possible fracture. HISTORY OF PRESENT ILLNESS: This is a 68-year-old male with past medical history significant for COPD. He has been admitted for COPD, pneumonia, and sepsis. Upon further workup, the patient was found to have reported left foot pain. Currently, at bedside, the patient reports a fall at home this past , approximately 5 days ago. The patient states that he was using the commode when he stood up to turn around to flush the commode. He states that he felt himself blackout and believes that he stubbed his toe on a cabinet behind the commode. He does not recall events after that. He knows that he fell to the ground because he does have soreness and bruise noted to his right hip. He denies any significant history related to his left foot. He denies a history of gout. He noted pain on the medial aspect of the foot near the great toe when he started to ambulate here in the hospital. X-rays were obtained, and we have been consulted for possible foot fracture. He denies any numbness or tingling or open wounds to the left foot. PAST MEDICAL HISTORY: Significant for COPD, hypertension, and pulmonary fibrosis. PAST SURGICAL HISTORY: Gastric sleeve, bilateral knee surgeries, left shoulder surgery, and heart cath. FAMILY HISTORY: Reviewed and noncontributory. SOCIAL HISTORY: The patient drinks everyday less than 5 drinks per day. Denies any illicit drug use. He does use chewing tobacco. REVIEW OF SYSTEMS: Conducted and otherwise negative except for stated above. PHYSICAL EXAMINATION: VITAL SIGNS: Temperature 97.8, pulse of 89, respiratory rate of 16, blood pressure of 132/75. GENERAL: The patient is awake and alert. He is very pleasant and cooperative with exam today. He is sitting up in bed, just finished eating breakfast. He is in no apparent distress at this time. HEENT: Head is normocephalic and atraumatic. NECK: Supple. Trachea midline. RESPIRATORY: Breathing nonlabored. EXTREMITIES: The left lower extremity was evaluated. For comparison sake, I have also removed the socks on the right foot. There is no swelling noted to the left foot. No ecchymosis or erythema. No open wounds. The patient is able to actively move all of his toes. There is no tenderness to palpation along the lateral aspect of the foot. No ankle tenderness along the medial or lateral aspects of the ankle. No tenderness along the soft tissues of the medial or lateral ankle. No tenderness along the medial navicular area of the foot. There is some tenderness at the base of the MTP joint, some soreness with movement of this joint. This tenderness extends into the great toe. Sensation is intact distally. Capillary refill 2 seconds. Remainder of extremity exam is otherwise unremarkable. RADIOGRAPHIC FINDINGS: Including 3 views of the left foot show osteoarthritic changes. There does appear to be a possible fracture at the navicular bone near the cuboid. No other acute findings. ASSESSMENT: Left foot pain, status post fall. PLAN: At this time, the patient does not appear tender in the area of the navicular as seen as a possible fracture on the x-rays. The patient is tender along the great toe and the MTP region. As gout may be a possibility, I do not believe this is likely. The patient has had an injury. This is likely a sprain or contusion. The patient may wear an orthotic walking boot as needed for comfort while ambulating. Once he is discharged, he can follow up in our orthopedic office in 2 to 3 weeks if he still continues to experience discomfort in this area for repeat x-rays and re-evaluation. Thank you for this consultation. No surgical intervention warranted at this time. We will see the patient as needed on an outpatient basis. Job ID: [id number]
[2018-06-21] MEDS: predniSONE 20 MG TAB PO SCH (17:11)
[2018-06-22 05:34] LABS: #Lymphocytes 0.7 thou/uL (1.20-3.40); #Monocytes 0.7 thou/uL (0.11-0.59); #Neutrophils 8.4 thou/uL (1.40-6.50); %Basophils 0.1 % (0.0-1.0); %Lymphocytes 7.1 % (21.0-51.0); %Monocytes 6.9 % (0.0-10.0); %Neutrophils 85.9 % (42.0-75.0); Hemoglobin 15.1 g/dL (14.0-18.0); Mean Corpuscular HGB CONC 32.3 g/dL (32.0-36.0); Mean Corpuscular Hemoglobin 30.5 pg (27.0-31.0); Mean Corpuscular Volume 94.6 fL (78.0-98.0); Mean Platelet Volume 7.3 fL (7.4-10.4); Platelet Count 239 thou/uL (130-400); RBC Distribution Width 12.1 % (11.5-14.5); Red Blood Cell (RBC) Count 4.94 mill/uL (4.70-6.10); White Blood Cell (WBC) Count 9.8 thou/uL (4.8-10.8)
[2018-06-22 05:47] LABS: Anion Gap 9 mmol/L (10-20); BUN (Urea Nitrogen) 18 mg/dL (8.4-25.7); Calc. Creatinine Clearance 151 mL/min (70-130); Calcium 9.2 mg/dL (7.8-10.44); Carbon Dioxide 32 mmol/L (23-31); Chloride 102 mmol/L (98-107); Estimated GFR-MDRD Greater than 90; Glucose 107 mg/dL (80-115); Sodium 139 mmol/L (136-145)
[2018-06-22] MEDS: Mometasone/Formoterol 120 PUFF INHALER INH SCH (06:22)
[2018-06-22] MEDS: Apixaban 5 MG TAB PO SCH (08:35)
[2018-06-22] MEDS: predniSONE 20 MG TAB PO SCH (08:35)
--- NOTE | 2018-06-22 11:08 | PRG ---
DATE OF SERVICE: 06/22/2018 SUBJECTIVE: He feels better and wants to go home. OBJECTIVE: VITAL SIGNS: Temperature 97.9, pulse 86, respirations 18, O2 saturation 95% on 3 L, and blood pressure 129/80. HEENT: Unremarkable. NECK: No JVD. LUNGS: Clear without wheezing. CARDIAC: S1 and S2, regular. ABDOMEN: Soft. EXTREMITIES: No edema. LABORATORY DATA: Sodium 139, potassium 4, chloride 102, CO2 of 32, BUN 18, creatinine 0.5, glucose 107. White blood cell count 9.8, hematocrit 46.8, and platelet count 239. ASSESSMENT: 1. Stable pulmonary status. 2. Question of aspiration pneumonia. 3. Chronic obstructive pulmonary disease. 4. Status post fall with injury to the right flank. PLAN: The patient will finish out a course of antibiotics. I have spoken to Dr. Chisholm and Dr. Hosea Melo. I think the patient needs further evaluation as an outpatient to determine whether or not he is experiencing severe reflux that is contributing to aspiration pneumonitis. He does have a previous history of gastric sleeve. The patient is stable to go home today. Job ID: [id number]
[2018-06-22 11:37] VITALS: TEMP 97.5
[2018-06-22 12:22] VITALS: BP 135/82
--- NOTE | 2018-06-22 15:03 | PRG ---
DATE OF SERVICE: 06/22/2018 SUBJECTIVE: Mr. Barahona feels better. He reports less shortness of breath. OBJECTIVE: VITAL SIGNS: Blood pressure 129/80, temperature 97.9, pulse 86, and O2 sats 95% on 3 L. LUNGS: Reveal no wheezing, rhonchi, or rales. HEART: Reveals a regular rate and rhythm. No murmurs, gallops, or rubs. IMPRESSION: 1. Pneumonia, seems to be better. 2. Chronic obstructive pulmonary disease, stable. PLAN: He can be discharged home. Continue home medicines. He will follow up with Dr. George or myself in approximately 2 weeks. Job ID: [id number]
--- NOTE | 2018-06-23 14:23 | DIS ---
DATE OF ADMISSION: 06/18/2018 DATE OF DISCHARGE: 06/22/2018 DISCHARGE DIAGNOSES: 1. Dyspnea and shortness of breath. 2. History of chronic obstructive pulmonary disease. 3. Exacerbation of chronic obstructive pulmonary disease. 4. Acute hypoxic respiratory failure. 5. History of deep vein thrombosis. ADMITTING PHYSICIAN: Dr. Facundo Chisholm. HOSPITAL SUMMARY: The patient is a 68-year-old male with known history of COPD, who presented to the emergency room complaining of weak, fatigue, and difficulty breathing. He was seen and evaluated in emergency room, thought to be having an underlying pneumonia. He was placed on IV antibiotics as well as IV steroids. A Pulmonary consult was obtained from Dr. George. He was continued on IV antibiotics. His overall hospital course was one of slow steady improvement. He had a previous history of a DVT, for which he was already on Eliquis. This was continued during the hospital. By 06/22/2018, the patient was doing well. He was tolerating all p.o. intake. He still requires supplemental oxygen, which required on daily basis, but he said he was feeling much better with less fatigue and was able to be discharged home on Tylenol as needed for pain, Tums 1000 mg daily, guaifenesin DM 15 mL as needed for cough, levofloxacin 750 mg daily, prednisone 20 mg daily, Eliquis 5 mg daily, DuoNeb twice daily, as well as Combivent Respimat inhaler. FOLLOWUP: He will be seen in followup by Dr. George in 1 week and by myself in 1 month. Job ID: [id number]
== END 2018-06-22 15:24 | disposition home or self-care (01) | DRG 177 ==
LOC: SCSER 16:57 → 2NO 18:53
PROVIDERS: ADMIT Family Medicine; ATTEND Family Medicine
DX: J69.0 Pneumonitis due to inhalation of food and vomit (principal); I21.A1 Myocardial infarction type 2; J96.01 Acute respiratory failure with hypoxia; J44.0 Chronic obstructive pulmonary disease with (acute) lower respiratory infection; J44.1 Chronic obstructive pulmonary disease with (acute) exacerbation; N39.0 Urinary tract infection, site not specified; R19.7 Diarrhea, unspecified; I10 Essential (primary) hypertension; R91.1 Solitary pulmonary nodule; N20.0 Calculus of kidney; Z72.0 Tobacco use; Z86.718 Personal history of other venous thrombosis and embolism; Z79.01 Long term (current) use of anticoagulants; S30.1XXA Contusion of abdominal wall, initial encounter; S90.122A Contusion of left lesser toe(s) without damage to nail, initial encounter; Z98.84 Bariatric surgery status; W18.30XA Fall on same level, unspecified, initial encounter; Y92.002 Bathroom of unspecified non-institutional (private) residence as the place of occurrence of the external cause
CPT/HCPCS: 36415; 71045; 71275; 74177; 80048; 80053; 81003; 81015; 82550; 82553; 83605; 83880; 84484; 84550; 85025; 85379; 87040; 87804; 93005; 94664; 94760; 96361; 96365; 96375; G8978-GP-CK; G8979-GP-CI; J1956; J2920; J2930; J7506; J7620

== ENCOUNTER 2018-07-06 15:55 | Emergency (ER) | payer MEDICARE ==
[2018-07-06] MEDS ORDERED: Water For Inject, Bacteriostat 30 ML ONE (16:24)
[2018-07-06] MEDS ORDERED: methylPREDNISolone Sod Succ/PF 125 MG/2 ML VIAL ONE (16:24)
[2018-07-06] MEDS ORDERED: Piperacillin/Tazobactam 4.5 GM VIAL ONE (16:24)
[2018-07-06 16:38] LABS: Actual Bicarbonate (HCO3a) 32.3 mEq/L (22-28); Analyzer IN Cardio ER; Base Excess (BEa) 5.6 mEq/L (-2.0 to +3.0); CO2 Tension 54.2 mmHg (35.0-45.0); Calcium, Ionized 1.18 mmol/L (1.12-1.30); Carboxyhemoglobin (COHb) 0.7 gm% (0.0-3.0); Hemoglobin (Hb) 16.4 g/dL (14.0-18.0); O2 Tension (PaO2) 64.6 mmHg (> 80.0); Potassium - ABG Lab 4.13 mmol/L (3.70-5.30); pH, Arterial 7.39 (7.35-7.45)
[2018-07-06 16:43] LABS: #Lymphocytes 1.3 thou/uL (1.20-3.40); #Monocytes 0.3 thou/uL (0.11-0.59); #Neutrophils 5.4 thou/uL (1.40-6.50); %Basophils 0.3 % (0.0-1.0); %Eosinophils 0.1 % (0.0-10.0); %Lymphocytes 18.2 % (21.0-51.0); %Monocytes 4.1 % (0.0-10.0); %Neutrophils 77.2 % (42.0-75.0); Hemoglobin 16.5 g/dL (14.0-18.0); Mean Corpuscular HGB CONC 31.9 g/dL (32.0-36.0); Mean Corpuscular Hemoglobin 30.4 pg (27.0-31.0); Mean Corpuscular Volume 95.2 fL (78.0-98.0); Mean Platelet Volume 7.4 fL (7.4-10.4); Platelet Count 211 thou/uL (130-400); RBC Distribution Width 11.9 % (11.5-14.5); Red Blood Cell (RBC) Count 5.42 mill/uL (4.70-6.10)
[2018-07-06 16:44] LABS: Puncture Site RRA
[2018-07-06] MEDS ORDERED: ISOVUE-370 76%-LOCM 1 ML ONE (16:44)
[2018-07-06 17:04] LABS: ALT (SGPT) 18 U/L (8-55); AST (SGOT) 21 U/L (5-34); Albumin 3.7 g/dL (3.4-4.8); Alkaline Phosphatase 105 U/L (40-150); Anion Gap 9 mmol/L (10-20); BUN (Urea Nitrogen) 11 mg/dL (8.4-25.7); Bilirubin, Total 0.5 mg/dL (0.2-1.2); Calc. Creatinine Clearance 0 mL/min (70-130); Calcium 9.7 mg/dL (7.8-10.44); Carbon Dioxide 36 mmol/L (23-31); Chloride 98 mmol/L (98-107); Estimated GFR-MDRD Greater than 90; Globulin 3.4 g/dL (2.4-3.5); Glucose 91 mg/dL (80-115); Potassium 4.3 mmol/L (3.5-5.1); Protein, Total 7.1 g/dL (5.8-8.1); Sodium 139 mmol/L (136-145)
--- NOTE | 2018-07-06 17:17 | RAD ---
EXAM: UPRIGHT CHEST ONE VIEW 07/06/18 HISTORY: 68-year-old male with history of dyspnea, worsening shortness of breath for three weeks. History of C OPD. COMPARISON: 06/18/18. FINDINGS: Increased bronchovascular markings are noted bilaterally. Heart size is within normal limits. The girma gs are clear. No confluent pneumonia, overt edema, or pleural effusion. IMPRESSION: Mild increased bronchovascular markings bilaterally. Stable minimal bilateral chronic changes includi ng some left apical pleural thickening. Atherosclerosis of the aorta. No overt edema or confluent pne umonia. POS: [facility]
[2018-07-06 18:29] LABS: Bilirubin Negative (Negative); Blood, Urine Large (Negative); Clarity CLEAR (Clear); Glucose, Urine (Dipstick) Negative (Negative); Leukocyte Trace (Negative); Nitrite Negative (Negative); Protein, Urine (Dipstick) Negative (Neg-Trace); Specific Gravity, Urine 1.041 (1.002-1.036); Urobilinogen 0.2 mg/dL (0.2-1.0); pH, Urine 7.5 (5.0-9.0)
[2018-07-06 18:31] LABS: Bacteria/HPF None Seen HPF (None Seen); Hyaline Casts/LPF 0-3 HYALINE CAST LPF (0-3 Hyaline); Pathc Cast-AUWi Flag 0.29 (0-2.49); RBC/HPF GREATER THAN 50-TNTC HPF (0-3); Squamous Epithelial None Seen HPF (0-3); WBC/HPF 0-3 HPF (0-3)
--- NOTE | 2018-07-06 18:53 | CT ---
CTA CHEST COMPARISON: 06/18/18 HISTORY: Recent admission for pneumonia and sepsis with hypoxia and dyspnea. Shortness of breath. TECHNIQUE: Multiple contiguous axial images were obtained in a CTA of the chest with contrast per pulmonary embo lism protocol. 3D oblique MIP reformats and direct coronal reformats were performed. FINDINGS: The pulmonary arteries are well opacified without filling defects to suggest pulmonary emboli. The he art is normal in size without focal cardiac abnormality. No hilar or mediastinal lymphadenopathy are seen. There are calcified mediastinal and left hilar lymph nodes. Increased interstitial lung markings are seen in the left lung base. This may have a tree-in-bud bari antonio and this could represent an acute infiltrate. When compared to the prior examination, this appear s to have improved. A calcified granuloma is seen in the left lower lobe of the lung. No pneumothora x or pleural effusion are seen. Degenerative changes are seen in the spine. Postsurgical changes are seen in the stomach. The other v isualized subdiaphragmatic structures are unremarkable. The chest wall soft tissues are unremarkable. IMPRESSION: 1. No evidence of pulmonary thromboembolism. 2. Improving left lower lobe pneumonia. POS: [facility]
== END 2018-07-06 19:06 | disposition home or self-care (01) ==
LOC: ERS 15:55
DX: J44.1 Chronic obstructive pulmonary disease with (acute) exacerbation (principal); I10 Essential (primary) hypertension; J44.9 Chronic obstructive pulmonary disease, unspecified; F17.220 Nicotine dependence, chewing tobacco, uncomplicated; Z79.51 Long term (current) use of inhaled steroids; Z79.899 Other long term (current) drug therapy
CPT/HCPCS: 71045; 71275; 80053; 81003; 81015; 82805; 83605; 83880; 84484; 85025; 87040; 87086; 93005; 94760; 96374; 96375; J2543; J2930; J7620

== ENCOUNTER 2018-08-13 10:29 | Inpatient (IN) | payer MEDICARE ==
[2018-08-13] MEDS ORDERED: Magnesium 2 GM/50 ML BAG (IN WATER) ONE (10:37)
[2018-08-13 11:03] LABS: Actual Bicarbonate (HCO3a) 33.7 mEq/L (22-28); Analyzer IN Cardio ER; Base Excess (BEa) 5.1 mEq/L (-2.0 to +3.0); Calcium, Ionized 1.21 mmol/L (1.12-1.30); Carboxyhemoglobin (COHb) 0.5 gm% (0.0-3.0); Hemoglobin (Hb) 14.5 g/dL (14.0-18.0); Potassium - ABG Lab 4.28 mmol/L (3.70-5.30); pH, Arterial 7.31 (7.35-7.45)
[2018-08-13 11:19] LABS: ALT (SGPT) 14 U/L (8-55); AST (SGOT) 23 U/L (5-34); Albumin 3.9 g/dL (3.4-4.8); Alkaline Phosphatase 59 U/L (40-150); BUN (Urea Nitrogen) 16 mg/dL (8.4-25.7); Bilirubin, Total 0.5 mg/dL (0.2-1.2); Calc. Creatinine Clearance 0 mL/min (70-130); Calcium 9.3 mg/dL (7.8-10.44); Estimated GFR-MDRD Greater than 90; Globulin 2.8 g/dL (2.4-3.5); Glucose 91 mg/dL (80-115); Protein, Total 6.7 g/dL (5.8-8.1)
[2018-08-13 11:22] LABS: #Lymphocytes 0.5 thou/uL (1.20-3.40); #Monocytes 0.5 thou/uL (0.11-0.59); #Neutrophils 2.6 thou/uL (1.40-6.50); %Eosinophils 0.3 % (0.0-10.0); %Lymphocytes 15.1 % (21.0-51.0); %Monocytes 13.1 % (0.0-10.0); %Neutrophils 71.5 % (42.0-75.0); Hemoglobin 14.7 g/dL (14.0-18.0); MDiff Complete? YES; Mean Corpuscular HGB CONC 31.5 g/dL (32.0-36.0); Mean Corpuscular Hemoglobin 30.6 pg (27.0-31.0); Mean Corpuscular Volume 97.1 fL (78.0-98.0); Mean Platelet Volume 7.6 fL (7.4-10.4); Platelet Count 114 thou/uL (130-400); Platelet Morphology Comment Appears Decreased; RBC Distribution Width 13.2 % (11.5-14.5); Red Blood Cell (RBC) Count 4.81 mill/uL (4.70-6.10); White Blood Cell (WBC) Count 3.6 thou/uL (4.8-10.8)
[2018-08-13 11:28] LABS: CO2 Tension 68.7 mmHg (35.0-45.0)
[2018-08-13 11:29] LABS: Anion Gap 12 mmol/L (10-20); Carbon Dioxide 36 mmol/L (23-31); Chloride 95 mmol/L (98-107); Potassium 4.7 mmol/L (3.5-5.1); Sodium 138 mmol/L (136-145)
[2018-08-13 11:29] LABS: ALV-art Gradient 211.225 (0-20); Puncture Site RRA
--- NOTE | 2018-08-13 11:53 | RAD ---
CHEST 1 VIEW: Date: 08/13/18 INDICATION: Shortness of breath. COMPARISON: Prior exam dated 08/12/18. FINDINGS: There are low lung volumes. No definite confluent air space opacity or pleural effusion is noted. Hea rt size is normal appearing. Chronic osseous changes are similar appearing. IMPRESSION: No acute abnormality. Stable exam to the most recent comparison. POS: [facility]
[2018-08-13] MEDS ORDERED: Oseltamivir 75 MG CAP PO SCH ×2 (12:00→21:00)
[2018-08-13] MEDS ORDERED: methylPREDNISolone Sod Succ/PF 125 MG/2 ML VIAL IVP SCH (14:00)
[2018-08-13] MEDS ORDERED: Prevnar 13-Val Conj/PF 0.5 ML SYRINGE IM ONE (14:15)
[2018-08-13] MEDS: Acetaminophen 325 MG TAB PO PRN ×2 (14:28→20:39)
[2018-08-13] MEDS ORDERED: Furosemide 20 MG/2 ML VIAL SLOW IVP SCH (15:15)
--- NOTE | 2018-08-13 15:33 | CON ---
DATE OF CONSULTATION: 08/13/2018 SERVICE: Pulmonary Medicine. REASON FOR CONSULTATION: Respiratory failure. HISTORY OF PRESENT ILLNESS: The patient is a 68-year-old white male with past medical history significant for COPD. He was in his usual state of health on Wednesday. He actually went to see a primary care physician for well visit. He was doing fantastic at that point. On , he started having increasing shortness of breath, cough, and congestion. Throughout Wednesday, this thing escalated and by the point Wednesday evening, rolled around, he was brought to the emergency department by family members. He cannot provide much in the way of interval history. He is currently encephalopathic. In the emergency room, he was quite short of breath, and was demonstrating some asterixis. After being placed on BiPAP, he went to sleep. He wakes up very comfortably, but with no stimulation, he will go back to sleep within 10 seconds. PAST MEDICAL HISTORY: 1. COPD. 2. Obstructive sleep apnea, mild. 3. Chronic hypoxic and hypercapnic respiratory failure. 4. Hypertension. PAST SURGICAL HISTORY: 1. Gastric sleeve surgery. 2. Bilateral knee replacement. 3. Left shoulder surgery. 4. Cardiac catheterization. FAMILY HISTORY: Noncontributory. SOCIAL HISTORY: The patient drinks on a daily basis. He denies any drug use. He has a remote history of extensive tobacco abuse. He has no exposure to chemicals, dust, asbestos, or tuberculosis. ALLERGIES: NO KNOWN DRUG ALLERGIES. MEDICATIONS: List of his inpatient medications was reviewed. No specific updates were made. REVIEW OF SYSTEMS: General; head, ears, eyes, nose, and throat; cardiovascular; respiratory; GI; ; musculoskeletal; neurologic; and skin are negative except as mentioned in the HPI. PHYSICAL EXAMINATION: VITAL SIGNS: T-max 101.3, pulse 96, blood pressure 96/70, respirations 22, and saturation 97% on 60% FiO2 and a PEEP of 5. HEENT: Normocephalic and atraumatic. Sclerae are white. Conjunctivae are pink. Oral mucosa is moist without lesions. LUNGS: Decreased air entry. There is a prolonged expiratory phase. Crackles and rhonchi are present. There is end-expiratory wheezing also noted. HEART: Normal rate. Regular. ABDOMEN: Soft, nontender, and nondistended. Bowel sounds are positive. MUSCULOSKELETAL: No cyanosis or clubbing. There is no pitting in bilateral lower extremities. NEUROLOGIC: Grossly nonfocal. LABORATORY DATA: WBC of 3.6, hemoglobin 14.7, and platelets 114,000. PH of 7.31, pCO2 of 68, and pO2 of 202 on 70% FiO2 at that time. Basic metabolic profile and liver function studies are essentially unremarkable, otherwise. Influenza A is positive. IMAGING DATA: Chest x-ray demonstrates no acute abnormality identified. ASSESSMENT: 1. Chronic hypoxic and hypercapnic respiratory failure. 2. Chronic obstructive pulmonary disease with acute exacerbation. 3. Acute bronchitis secondary to influenza A. 4. Obstructive sleep apnea, mild. DISCUSSION AND PLAN: The patient will be left on BiPAP. We will give him breaks 3 times daily. I will increase his EPAP to approximate his sleep study to require the expiratory pressure minimum. We will give him enough oxygen to maintain saturations between 88% and 92%. Antibiotics, nebulized medications, and steroids will be continued. Pulmonary/Critical Care will continue to follow along, but he will certainly need to remain in the IMCU overnight. Job ID: [id number]
[2018-08-13] MEDS: Apixaban 5 MG TAB PO SCH (20:39)
--- NOTE | 2018-08-14 00:27 | HP ---
HISTORY OF PRESENT ILLNESS: This is a 68-year-old white male with a history of severe COPD/chronic bronchitis, supposedly on 5 liters of O2 at home, followed by Dr. Facundo Chisholm and Dr. George, who presents with shortness of breath. The patient does have a history of a DVT in February of 2018 and was started on Eliquis at that time. He was hospitalized in June with bilateral pneumonia and did well. Evidently, on August 09, he saw Dr. Facundo Chisholm and was diagnosed with a COPD exacerbation and his neb treatments were increased. He was having shortness of breath at that time. He was then seen again on August 12 with an upper respiratory infection. He also had fever and chills at that time and the flu testing was negative. Chest x-ray was found to be abnormal. He was started on Levaquin and given 1 g of Rocephin injection IM; however, the patient continued to deteriorate. He presented to the emergency room, where he was admitted and placed on BiPAP. He has been seen by Dr. Arredondo. He has been followed in the office by Dr. George. Difficulty obtaining the history at this time, he is on BiPAP. The nurses states that he occasionally will wake up and talk. At this time, he remains stable. PAST MEDICAL HISTORY: Includes severe COPD/chronic bronchitis, hypertension, recent pneumonia, history of kidney stones, history of DVT in February 2018. PAST SURGICAL HISTORY: Includes left shoulder and knee surgery in , right wrist surgery in 2013, gastric sleeve in January 09, 2016. FAMILY HISTORY: Parents are status post CVAs. Most of the family history is unknown. SOCIAL HISTORY: He is a former smoker, he quit in 1984. He is followed by Dr. Facundo Chisholm in the office. He lives with his spouse. He is . He does have three children. MEDICATIONS: Include; 1. Trazodone 100 at bedtime. 2. Combivent 4 q.i.d. 3. Lasix daily. 4. Eliquis 5 b.i.d. 5. Albuterol metered-dose inhaler two puffs q.i.d. 6. Tylenol No. 3 p.r.n. ALLERGIES: NONE. REVIEW OF SYSTEMS: As above. PHYSICAL EXAMINATION: VITAL SIGNS: Temperature 101.3, blood pressure 91/65, pulse 65, pulse ox 95%, respirations 16 on BiPAP. GENERAL: The patient is lethargic, asleep on BiPAP, does not appear to be in any pain. HEENT: Stable. NECK: Supple. HEART: Regular rate and rhythm. LUNGS: Relatively clear at this time. ABDOMEN: Soft, obese, nontender to palpation. EXTREMITIES: No edema. LABORATORY DATA: White count 3.6, H and H 14 and 46, platelets 114. Sodium 138, potassium 4.7, chloride 95, CO2 of 36, creatinine 0.69, BUN 16. Liver functions normal. Chest x-ray, no acute abnormalities. ASSESSMENT: 1. Cough, chronic hypoxic and hypercapnic respiratory failure. 2. Chronic obstructive pulmonary disease exacerbation. 3. Acute bronchitis secondary to influenza A. 4. Obstructive sleep apnea. 5. Tobacco history. 6. Recent bilateral pneumonia in June 2018. 7. Hypertension. 8. Kidney stones. 9. History of deep venous thrombosis in February 2018. PLAN: 1. Continue BiPAP. 2. Continue p.o. q.a.m. 3. Tamiflu 75 p.o. b.i.d. 4. DuoNeb treatments q.6 hours. 5. Eliquis 5 b.i.d. 6. Repeat CBC, BMP in a.m. 7. We will continue to follow. Job ID: [id number]
[2018-08-14 05:20] LABS: Anion Gap 11 mmol/L (10-20); BUN (Urea Nitrogen) 15 mg/dL (8.4-25.7); Calc. Creatinine Clearance 153 mL/min (70-130); Calcium 9.3 mg/dL (7.8-10.44); Carbon Dioxide 34 mmol/L (23-31); Chloride 99 mmol/L (98-107); Estimated GFR-MDRD Greater than 90; Glucose 117 mg/dL (80-115); Potassium 4.6 mmol/L (3.5-5.1); Sodium 139 mmol/L (136-145)
[2018-08-14 05:59] LABS: Band 5 % (5-11); Lymphocytes 13 % (21-51); MDiff Complete? YES; Mean Corpuscular HGB CONC 31.5 g/dL (32.0-36.0); Mean Corpuscular Hemoglobin 30.3 pg (27.0-31.0); Mean Corpuscular Volume 96.3 fL (78.0-98.0); Mean Platelet Volume 7.8 fL (7.4-10.4); Monocytes 14 % (0-10); Neutrophil 67 % (42-75); Platelet Count 119 thou/uL (130-400); Platelet Morphology Comment Appears Decreased; Reactive Lymphocytes 1 % (0-10); Red Blood Cell (RBC) Count 4.61 mill/uL (4.70-6.10); White Blood Cell (WBC) Count 2.3 thou/uL (4.8-10.8)
[2018-08-14] MEDS ORDERED: Acetaminophen 650 MG/20.3 ML UDCUP PO PRN (09:37)
[2018-08-14] MEDS: Apixaban 5 MG TAB PO SCH ×2 (09:57→22:54)
[2018-08-14] MEDS: predniSONE 20 MG TAB PO SCH (09:57)
[2018-08-14] MEDS ORDERED: Oseltamivir 75 MG CAP PO SCH ×2 (10:00→21:00)
--- NOTE | 2018-08-14 11:09 | PRG ---
DATE OF SERVICE: 08/14/2018 SUBJECTIVE: The patient looks significantly better this morning. He is sitting up in a chair, watching TV, conversing without BiPAP. However, he still desaturates when going to the bathroom. OBJECTIVE: VITAL SIGNS: Temperature 99.0, pulse 102, respirations 28, pulse ox 96 on 2 L, and blood pressure 113/81. HEART: Regular rate and rhythm. LUNGS: Relatively clear. May have slight decreased breath sounds bilaterally. ABDOMEN: Soft. EXTREMITIES: No edema. LABORATORY DATA: White count 2.3, H and H 14 and 44, and platelet 119. Sodium 139, potassium 4.6, CO2 of 34, creatinine 0.58, BUN 15, and blood sugar 117. ASSESSMENT: 1. Chronic hypoxic and hypercapnic respiratory failure. 2. Acute bronchitis secondary to influenza A. 3. Chronic obstructive pulmonary disease exacerbation. 4. Obstructive sleep apnea. 5. Tobacco history. 6. Recent bilateral pneumonia in June 2018. 7. Hypertension. 8. Kidney stones. 9. History of deep venous thrombosis in February 2018, on Eliquis. PLAN: 1. Continue with neb treatments and prednisone 40 mg p.o. q.a.m. 2. May need to observe another night in the [facility]. Continue Eliquis 5 p.o. b.i.d. 3. Complete 5 days of Tamiflu. Job ID: [id number]
--- NOTE | 2018-08-14 11:33 | PRG ---
DATE OF SERVICE: 08/14/2018 SERVICE: Pulmonary Medicine. INTERVAL HISTORY: The patient is doing much better from respiratory standpoint. Not having any difficulties with breathing. He has not had any fevers, chills, nausea, or vomiting. Not having accessory use. He got off the BiPAP about 4 o'clock this morning. Since then, he has not had any significant respiratory issues. PHYSICAL EXAMINATION: VITAL SIGNS: Afebrile, pulse 103, blood pressure 113/81, respirations 25, and saturation 94% on room air. GENERAL: The patient is awake and alert, in no apparent distress. LUNGS: He is not moving any air. As such, we really cannot appreciate any adventitious sounds. HEART: Normal rate and regular. ABDOMEN: Soft, nontender, and nondistended. Bowel sounds are positive. MUSCULOSKELETAL: No cyanosis or clubbing. No pitting in the bilateral lower extremities. NEUROLOGIC: Grossly nonfocal. LABORATORY DATA: WBC 2.3, hemoglobin 14.0, and platelets 119,000. Basic metabolic profile is otherwise unremarkable. Influenza A is positive. ASSESSMENT: 1. Acute on chronic hypoxic and hypercapnic respiratory failure. 2. Chronic obstructive pulmonary disease with acute exacerbation. 3. Influenza A. 4. Obstructive sleep apnea, mild. DISCUSSION AND PLAN: We will continue our antibiotics, nebulized medications, and steroids. At this point, the patient is stable for transition out of the IMCU to the medical unit provided. He has his home BiPAP for use tonight. I have stressed the importance of continuing to use this machine for 2 reasons. The first is because of the mild sleep apnea. The second is because of his hypercapnic respiratory failure. This device may prevent him from developing future episodes of respiratory failure. We will provide him with a single dose of Lasix today because it was held yesterday. Job ID: [id number]
[2018-08-14] MEDS ORDERED: Furosemide 20 MG/2 ML VIAL SLOW IVP SCH (12:30)
[2018-08-14] MEDS: Oseltamivir 75 MG CAP PO SCH (22:54)
--- NOTE | 2018-08-15 08:27 | PRG ---
DATE OF SERVICE: 08/15/2018 SUBJECTIVE: He is feeling better and wants to go home. OBJECTIVE: VITAL SIGNS: On exam, his temperature is 98.3, pulse 89, respirations 20, O2 saturation 89% on 2 L. HEENT: Unremarkable. LUNGS: Clear. CARDIAC: S1, S2. Regular. ABDOMEN: Soft, nontender. EXTREMITIES: No edema. ASSESSMENT: 1. Severe chronic obstructive pulmonary disease, which is clinically baseline. 2. Influenza type A. PLAN: I agree that he is suitable for discharge. His prednisone can be weaned over several days. He is continuing Eliquis for history of DVT. His x-ray has cleared up nicely from the abnormalities, we were following in the past. Job ID: [id number]
[2018-08-15] MEDS: Apixaban 5 MG TAB PO SCH (08:52)
[2018-08-15] MEDS: Oseltamivir 75 MG CAP PO SCH (08:52)
[2018-08-15] MEDS: predniSONE 20 MG TAB PO SCH (08:52)
[2018-08-15 14:36] VITALS: BMI 29.5
--- NOTE | 2018-08-15 17:23 | PRG ---
DATE OF SERVICE: 08/15/2018 SUBJECTIVE: Mr. Barahona is feeling much better. He is breathing better. He reports no medical complaints. OBJECTIVE: VITAL SIGNS: Blood pressure 112/74, temperature 98.3, and O2 sat is 91% on 3 L. LUNGS: Reveal bilateral breath sounds. HEART: Reveals no murmur. IMPRESSION: 1. Chronic obstructive pulmonary disease. 2. Influenza. PLAN: The patient has been okayed by Dr. George to be discharged home and will continue home medications. Continue prednisone 40 mg daily. He will follow up with me in 10 days. Job ID: [id number]
[2018-08-15 17:40] VITALS: BP 128/72; TEMP 98.4
== END 2018-08-15 17:44 | disposition home or self-care (01) | DRG 189 ==
LOC: ERS 10:29 → IMCU/EMU 11:50 → T4-A 08-14 18:36
PROVIDERS: ADMIT Family Medicine; ATTEND Family Medicine
DX: J96.21 Acute and chronic respiratory failure with hypoxia (principal); J44.0 Chronic obstructive pulmonary disease with (acute) lower respiratory infection; J44.1 Chronic obstructive pulmonary disease with (acute) exacerbation; J96.22 Acute and chronic respiratory failure with hypercapnia; I10 Essential (primary) hypertension; J20.9 Acute bronchitis, unspecified; J09.X2 Influenza due to identified novel influenza A virus with other respiratory manifestations; G47.33 Obstructive sleep apnea (adult) (pediatric); Z79.01 Long term (current) use of anticoagulants; Z87.891 Personal history of nicotine dependence; Z86.718 Personal history of other venous thrombosis and embolism; Z96.653 Presence of artificial knee joint, bilateral; Z82.3 Family history of stroke
CPT/HCPCS: 36415; 71045; 80048; 80053; 82805; 85025; 87804; 93005; 94640; 94660; 94760; 96360; 96361; 96365; J1940; J2930; J3475; J7506; J7620

== ENCOUNTER 2018-08-29 17:37 | Outpatient (CLI) | payer MEDICARE ==
--- NOTE | 2018-08-29 18:43 | RAD ---
CHEST TWO VIEW: INDICATIONS: History of COPD. COMPARISON: Prior exam dated 08/13/2018. FINDINGS: Since the comparison examination, there has been interval development of left lower lobe consolidatio n, suspicious for pneumonia. The right lung is clear. Heart size is normal. Osseous structures phyllis ear unchanged from the comparison. IMPRESSION: New left lower lobe consolidation, suspicious for pneumonia. Recommend radiograph followup to resolu tion. POS: [facility]
== END 2018-08-29 17:38 | disposition home or self-care (01) ==
LOC: SCSRAD 17:37
PROVIDERS: ATTEND Family Medicine
DX: J44.9 Chronic obstructive pulmonary disease, unspecified (principal); J18.1 Lobar pneumonia, unspecified organism
CPT/HCPCS: 71046

== ENCOUNTER 2018-09-27 10:55 | Outpatient (CLI) | payer MEDICARE ==
[~2018-09-27 10:55] MED LIST changes: +ISOVUE-370 76%-LOCM 1 ML ONE; -Iopamidol 370 76% 100 ML VIAL ONE
[2018-09-27 11:24] LABS: Estimated GFR-MDRD - POC Greater than 90
--- NOTE | 2018-09-27 12:25 | CT ---
CT THORAX WITH IV CONTRAST: 09/27/2018 HISTORY: Left upper lobe lung mass. COMPARISON: CT thorax on 02/26/2018. CTA chest on 07/06/2018. FINDINGS: The thick-walled cavitary lesion in the left upper lobe is no longer visualized, and the interstitial and alveolar opacities in the areas of consolidation in the left upper lobe are also no longer seen, and findings may be related to resolution of an infectious process. There are pleural and parenchym al changes seen at the posterolateral aspect of the left lung apex and the left upper lobe, with appe arance unchanged compared to a study on 07/06/2018, and is likely related to pleural and parenchymal scarring in the left upper lobe. Again noted are emphysematous changes within the upper lobes bilaterally. A few scattered linear den sities are seen within the lungs bilaterally, likely related to areas of scarring. There has been interval resolution of the small left pleural effusion and trace right pleural effusio ns when compared to the prior study on 02/26/2018. A calcified granuloma is present in the left lower lobe. Again noted is trace pericardial effusion. Minimal vascular calcifications are seen in the coronary arteries. The thoracic aorta is normal in caliber, without evidence of an aortic dissection. No mediastinal or hilar lymphadenopathy is seen. There are stable calcified lymph nodes seen in the left hilar region, as well as subcarinal location. Post surgical changes of the stomach are again seen, which may be related to prior gastric sleeve pro cedure. There is suggestion of incomplete visualization of right hydronephrosis. The patient was noted to oliver ve a prominent calculus in the right renal pelvis on CT abdomen on 06/18/2018, which is incompletely imaged or evaluated on today's study. There is also incomplete visualization of prominence of the up per pole collecting system on prior CT exam on 02/16/2018. There are remote posterior and posterolateral right-sided rib fractures seen, with callus formation a bout the fracture sites, consistent with healing fractures. Degenerative changes are noted in the sp ine. No lytic or sclerotic osseous lesions are appreciated. IMPRESSION: 1. Resolution of parenchymal air space and interstitial densities in the left upper lobe, as well as resolution of what appeared to be a cavitary lesion on the prior study. Findings are likely related to resolution of an infectious process. There are pleural and parenchymal changes within the linderman operator ior and posterolateral left lung apex and left upper lobe, and these findings are overall similar to prior study on 07/06/2018, and are probably related to pleural and parenchymal scarring. 2. Chronic lung changes, including evidence of chronic obstructive pulmonary disease. 3. Trace pericardial effusion. 4. Dilatation of limited visualized upper pole right renal collecting system, which was also partial ly imaged and seen on the study of 02/16/2018. 5. Healing posterior and posterolateral right-sided lower rib fractures. 6. Height loss of a few upper thoracic vertebral bodies, stable from prior study, related to remote mild compression deformities. Scattered Schmorl's nodes are seen within the thoracic vertebral wayne s. 7. Post surgical changes of the stomach with evidence of a small hiatal hernia. POS: [facility]
== END 2018-09-27 10:56 | disposition home or self-care (01) ==
LOC: BICCT 10:55
PROVIDERS: ATTEND Internal Medicine Critical Care Medicine
DX: R91.1 Solitary pulmonary nodule (principal); J44.9 Chronic obstructive pulmonary disease, unspecified; K44.9 Diaphragmatic hernia without obstruction or gangrene; S22.41XD Multiple fractures of ribs, right side, subsequent encounter for fracture with routine healing; Z98.890 Other specified postprocedural states
CPT/HCPCS: 71260; 82565; Q9966

== ENCOUNTER 2018-10-07 15:37 | Outpatient (CLI) | payer MEDICARE ==
[2018-10-07 17:41] LABS: Platelet Count 193 thou/uL (130-400)
[2018-10-07 17:46] LABS: Hemoglobin 14.3 g/dL (14.0-18.0); Mean Corpuscular HGB CONC 32.1 g/dL (32.0-36.0); Mean Corpuscular Hemoglobin 30.7 pg (27.0-31.0); Mean Corpuscular Volume 95.5 fL (78.0-98.0); Mean Platelet Volume 7.7 fL (7.4-10.4); Platelet Count 191 thou/uL (130-400); RBC Distribution Width 13.4 % (11.5-14.5); Red Blood Cell (RBC) Count 4.67 mill/uL (4.70-6.10); White Blood Cell (WBC) Count 5.4 thou/uL (4.8-10.8)
[2018-10-07 17:50] LABS: PTT 28.3 SEC (22.9-36.1); Prothrombin Time 13.3 SEC (12.0-14.7)
[2018-10-07 17:56] LABS: EPI 71 SEC (67-199)
[2018-10-07 18:06] LABS: Anion Gap 13 mmol/L (10-20); BUN (Urea Nitrogen) 9 mg/dL (8.4-25.7); Calc. Creatinine Clearance 0 mL/min (70-130); Carbon Dioxide 29 mmol/L (23-31); Chloride 102 mmol/L (98-107); Estimated GFR-MDRD Greater than 90; Glucose 84 mg/dL (80-115); Potassium 3.8 mmol/L (3.5-5.1); Sodium 140 mmol/L (136-145)
== END 2018-10-07 15:38 | disposition home or self-care (01) ==
LOC: LABBT 15:37
PROVIDERS: ATTEND Urology
DX: Z01.812 Encounter for preprocedural laboratory examination (principal); N20.0 Calculus of kidney
CPT/HCPCS: 80048; 85027; 85576; 85610; 85730

== ENCOUNTER 2018-10-12 06:09 | Day surgery (SDC) | payer MEDICARE ==
[2018-10-12] MEDS ORDERED: Midazolam HCl 2 mg/2 ml Vial ONE (06:24)
[2018-10-12] MEDS ORDERED: Fentanyl 100 MCG/2 ML VIAL ONE (06:24)
[2018-10-12] MEDS ORDERED: Iothalamate Meglumine 60% 50 ML VIAL FS ONE (06:53)
--- NOTE | 2018-10-12 07:46 | RAD ---
FXR Abdomen 1 View/KUB History: [Preop] Comparison: Radiograph August 29, 2018 Findings: Heart calcification projects over the right lower hemiabdomen within the right lower renal pelvis. There is elevation left hemidiaphragm. No dilated loops of large or small bowel. Mild levoscoliosis lumbar spine. Lung bases are clear. Impression: Large calculus stretching over the expected location right infrarenal collecting system m easuring up to 1.4 cm, similar to the CT examination from June 2018.
--- NOTE | 2018-10-12 14:22 | OP ---
DATE OF PROCEDURE: 10/12/2018 PREOPERATIVE DIAGNOSIS: Right renal pelvic stone. POSTOPERATIVE DIAGNOSIS: Right renal pelvic stone. PROCEDURE PERFORMED: Right extracorporeal shock wave lithotripsy. ANESTHESIA: General. ESTIMATED BLOOD LOSS: Not recorded. FINDINGS: There was somewhere between a 1.1 and 1.3 cm right renal pelvic stone that was treated with 2500 shocks at a maximum kV level of 5. It did not appear to fragment well. The stent was not placed because it did not appear to fragment that well. DESCRIPTION OF PROCEDURE: After obtaining written and verbal consent from the patient and after documenting normal preoperative blood work, may consider stone was easily visualized. He was taken to the operating suite. He was placed in a supine position on the treatment table. PlexiPulses were placed in his lower extremities and turned on. He was given a general anesthetic and oral obturator intubation. He was coupled to the lithotripsy unit and the stone was placed in treatment focal point. Shockwave therapy was commenced at a very low kV. After couple of 100 shocks, a 5 minute pause was given and then the ESWL was resumed, increasing the rate to 4 and at the level of 5, a total of 2500 shocks were given. Fluoroscopy was used intermittently to document stone positioning and reposition as necessary and document fragmentation did appear to spread out somewhat suggesting that it did have some fragmentation. No areas that appeared to start to fall off it or drop back from it and for this reason, the stent was not placed. At this point, the patient was awakened and extubated and taken by stretcher to recovery room. Job ID: [id number]
[2018-10-12] MEDS ORDERED: PROPOFOL 200 MG/20 ML VIAL ONE (16:18)
[2018-10-12] MEDS ORDERED: Lidocaine 1% PF 5 ML VIAL ONE (16:18)
[2018-10-12] MEDS ORDERED: Ondansetron PF 4 MG/2 ML Vial ONE (16:18)
[2018-10-12] MEDS ORDERED: Dexamethasone 20 MG/5 ML VIAL ONE (16:18)
== END 2018-10-12 11:45 | disposition home or self-care (01) ==
LOC: SDC 06:09
PROVIDERS: ATTEND Urology
PROC: 0TF3XZZ Fragmentation in Right Kidney Pelvis, External Approach (ICD-10-PCS; principal; 2018-10-12)
DX: N20.0 Calculus of kidney (principal); G47.30 Sleep apnea, unspecified; J44.9 Chronic obstructive pulmonary disease, unspecified; Z79.899 Other long term (current) drug therapy
CPT/HCPCS: 74018; J1100; J2001; J2250; J2405; J2704; J3010; Q9961

== ENCOUNTER 2018-10-31 07:11 | Day surgery (SDC) | payer MEDICARE ==
[2018-10-27 09:03] VITALS: BMI 28.8
--- NOTE | 2018-10-31 07:57 | RAD ---
XR Abdomen 1 View/KUB 1 view abdomen series CLINICAL INDICATION: Preoperative evaluation, history of renal calculi FINDINGS: Comparison 10/24/2018 Lung basesare stable. Calcific densities of the right mid to lower abdomen are again demonstrated. Moderate retained fecal material is seen within colon. No acute osseous pathology. IMPRESSION: Redemonstration of calcific densities of the right abdomen.
[2018-10-31] MEDS ORDERED: Fentanyl 100 MCG/2 ML VIAL ONE (08:51)
[2018-10-31] MEDS ORDERED: Iothalamate Meglumine 60% 50 ML VIAL FS ONE (09:13)
[2018-10-31] MEDS ORDERED: Ondansetron PF 4 MG/2 ML Vial ONE (11:42)
[2018-10-31] MEDS ORDERED: PROPOFOL 200 MG/20 ML VIAL ONE (11:42)
[2018-10-31] MEDS ORDERED: Dexamethasone 20 MG/5 ML VIAL ONE (11:42)
--- NOTE | 2018-10-31 11:49 | OP ---
DATE OF PROCEDURE: 10/31/2018 PREOPERATIVE DIAGNOSIS: Right renal and right ureteral stone. POSTOPERATIVE DIAGNOSIS: Right renal and right ureteral stone. PROCEDURE PERFORMED: Right renal ESWL and right ureteral ESWL. ANESTHETIC: General. ESTIMATED BLOOD LOSS: Not recorded. FINDINGS: Over 1 cm stone and broke up into some pieces in the lower pole of the right kidney, treated with 2500 shocks at level 4 and level 5. There was a less than half a centimeter right mid ureteral stone treated with 2500 shocks at level 5 and level 6. No stent was placed. DESCRIPTION OF PROCEDURE: Obtained written and verbal consent from the patient. He was taken to the operating suite. He was placed in a supine position on the treatment table. PlexiPulses were placed on his lower extremities and turned on. He was given a general anesthetic and oral obturator intubation. This renal stone was placed in treatment focal point and he was coupled to the lithotripsy unit. The stone was from a posterior, was treated with a total of 2500 shocks. It did appear to continue to fragment. Once this was completed, we flipped the head to treat from anterior of the mid ureteral stone that was treated with 2500 shocks. It also appeared to fragment well. For this reason, the stent was not placed. At this point, the patient was awakened, extubated, and taken by stretcher to recovery room. Job ID: [id number]
== END 2018-10-31 12:55 | disposition home or self-care (01) ==
LOC: SDC 07:11
PROVIDERS: ATTEND Urology
PROC: 0TF3XZZ Fragmentation in Right Kidney Pelvis, External Approach (ICD-10-PCS; principal; 2018-10-31)
PROC: 0TF6XZZ Fragmentation in Right Ureter, External Approach (ICD-10-PCS; 2018-10-31)
DX: N20.2 Calculus of kidney with calculus of ureter (principal); G47.30 Sleep apnea, unspecified; J44.9 Chronic obstructive pulmonary disease, unspecified; Z79.82 Long term (current) use of aspirin
CPT/HCPCS: 74018; J1100; J2405; J2704; J3010; Q9961

== ENCOUNTER 2019-01-18 14:02 | Outpatient (CLI) | payer MEDICARE ==
--- NOTE | 2019-01-19 15:33 | PFT ---
PATIENT HISTORY: HEIGHT: 67 IN WEIGHT: 187 SMOKER: NO HOW LON YRS PACKS PER DAY: 1 PRODUCTIVE COUGH: LUNG DISEASE: PHYSICIAN INTERPRETATION FINAL REPORT: There is a very severe reduction in Expiratory Flows.Vital Capacity is moderately reduced. RV was hyper inflated RV/TLC was hyper-expanded; gas transfer severely reduced. IMPRESSION: Severe obstructive airway disease Severely reduced diffusion capacity. Compliance Director: RAMAKRISHNA Offbearer: RAMAKRISHNA ROBERTSON
== END 2019-01-18 14:03 | disposition home or self-care (01) ==
LOC: CP 14:02
PROVIDERS: ATTEND Internal Medicine Critical Care Medicine
DX: J44.9 Chronic obstructive pulmonary disease, unspecified (principal)
CPT/HCPCS: 94060; 94727; 94729

== ENCOUNTER 2020-09-04 12:05 | Outpatient (CLI) | payer MEDICARE ==
--- NOTE | 2020-09-04 13:17 | RAD ---
EXAM: Chest 2 views: HISTORY: Dyspnea COMPARISON: 08/29/2018 FINDINGS: There is a normal-sized cardiomediastinal silhouette. Increased interstitial lung markings are prese nt. Biapical pleural thickening is seen. Atherosclerotic calcifications are seen in the aorta. There is no evidence of consolidation, mass, or pleural effusion. No acute osseous abnormality. IMPRESSION: No evidence of acute cardiopulmonary disease
== END 2020-09-04 12:06 | disposition home or self-care (01) ==
LOC: BICRAD 12:05
PROVIDERS: ATTEND Internal Medicine Critical Care Medicine
DX: R06.00 Dyspnea, unspecified (principal)
CPT/HCPCS: 71046

== ENCOUNTER 2021-07-08 20:14 | Emergency (ER) | payer MEDICARE ==
[2021-07-08 21:06] LABS: #Eosinphils 0.1 thou/uL (0.0-0.7); #Lymphocytes 1.1 thou/uL (1.20-3.40); #Monocytes 0.2 thou/uL (0.11-0.59); #Neutrophils 8.7 thou/uL (1.40-6.50); %Basophils 0.1 % (0.0-1.0); %Eosinophils 0.8 % (0.0-10.0); %Lymphocytes 11.2 % (21.0-51.0); %Monocytes 1.7 % (0.0-10.0); %Neutrophils 86.2 % (42.0-75.0); Hemoglobin 14.7 g/dL (14.0-18.0); Mean Corpuscular HGB CONC 33.1 g/dL (32.0-36.0); Mean Corpuscular Hemoglobin 32.6 pg (27.0-31.0); Mean Corpuscular Volume 98.4 fL (78.0-98.0); Mean Platelet Volume 7.5 fL (7.4-10.4); Platelet Count 188 thou/uL (130-400); RBC Distribution Width 12.4 % (11.5-14.5)
[2021-07-08 21:08] LABS: ALT (SGPT) 17 U/L (8-55); AST (SGOT) 25 U/L (5-34); Albumin 3.9 g/dL (3.4-4.8); Alkaline Phosphatase 55 U/L (40-110); Anion Gap 13 mmol/L (10-20); BUN (Urea Nitrogen) 12 mg/dL (8.4-25.7); Calc. Creatinine Clearance 0 mL/min (70-130); Calcium 9.4 mg/dL (7.8-10.44); Carbon Dioxide 37 mmol/L (23-31); Chloride 96 mmol/L (98-107); Globulin 2.7 g/dL (2.4-3.5); Glucose 103 mg/dL (80-115); Potassium 4.3 mmol/L (3.5-5.1); Protein, Total 6.6 g/dL (5.8-8.1); Sodium 142 mmol/L (136-145)
[2021-07-08 21:31] LABS: Actual Bicarbonate (HCO3a) 37.1 mEq/L (22-28); Analyzer IN Cardio ER; Base Excess (BEa) 9.2 mEq/L (-2.0 to +3.0); Calcium, Ionized (arterial) 1.18 mmol/L (1.12-1.30); Carboxyhemoglobin (COHb) 0.8 gm% (0.0-3.0); Hemoglobin (Hb) 15.4 g/dL (14.0-18.0); O2 Tension (PaO2), arterial 81.8 mmHg (> 70.0); pH, Arterial 7.38 (7.35-7.45)
[2021-07-08 21:35] LABS: CO2 Tension 63.5 mmHg (35.0-45.0)
[2021-07-08 21:37] LABS: ALV-art Gradient 66.985 mmHg (0-20); Puncture Site LBA
[2021-07-08 22:42] LABS: Bacteria/HPF 2+ HPF (None Seen); Bilirubin Negative (Negative); Blood, Urine 3+ (Negative); Clarity Turbid (Clear); Glucose, Urine (Dipstick) Normal (Negative); Ketone, Urine 60 mg/dL (Negative); Leukocyte 500 Leu/uL (Negative); Mucous/LPF 1+ LPF (<2+); Nitrite Negative (Negative); Protein, Urine (Dipstick) 70 mg/dL (Neg-Trace); RBC/HPF Greater than 50 HPF (0-3); Specific Gravity, Urine 1.021 (1.002-1.036); Squamous Epithelial 0-3 HPF (0-3); Urobilinogen Normal mg/dL (Less than 2); WBC/HPF Greater than 50 HPF (0-3)
[2021-07-08] MEDS ORDERED: cefTRIAXone\\ROCEPHIN 2 GM VIAL ONE ×2 (23:12→23:13)
== END 2021-07-09 01:36 | disposition home or self-care (01) ==
LOC: ERS 20:14
DX: J44.9 Chronic obstructive pulmonary disease, unspecified (principal); N39.0 Urinary tract infection, site not specified; R41.82 Altered mental status, unspecified; I10 Essential (primary) hypertension; F17.220 Nicotine dependence, chewing tobacco, uncomplicated
CPT/HCPCS: 36600; 71045; 80053; 81003; 81015; 82805; 84484; 85025; 87086; 93005; 96365; J0696

== ENCOUNTER 2021-10-23 13:24 | Outpatient (CLI) | payer MEDICARE | END 2021-10-23 13:25 | disposition home or self-care (01) | LOC: RAD 13:24 | PROVIDERS: ATTEND Internal Medicine Critical Care Medicine | DX: R06.00 Dyspnea, unspecified (principal); J98.4 Other disorders of lung; J92.9 Pleural plaque without asbestos; J98.6 Disorders of diaphragm | CPT/HCPCS: 71046 ==

== ENCOUNTER 2021-11-11 09:25 | Outpatient (CLI) | payer MEDICARE ==
[2021-11-11 10:43] LABS: Bilirubin Neg (Negative); Blood, Urine 250 (Negative); Clarity Slightly Cloudy (Clear); Glucose, Urine (Dipstick) Normal (Negative); Ketone, Urine Negative (Negative); Leukocyte 100 (Negative); Nitrite Negative (Negative); Protein, Urine (Dipstick) 30 mg/dl (Neg-Trace)
[2021-11-11 10:50] LABS: #Eosinphils 0.3 10x3/uL (0.0-0.5); #Monocytes 0.7 10x3/uL (0.0-1.1); #Neutrophils 3.4 10x3/uL (1.5-8.4); %Basophils 0.4 % (0.0-2.0); %Eosinophils 4.2 % (0.0-6.0); %Lymphocytes 37.8 % (18.0-47.0); %Monocytes 9.3 % (0.0-10.0); Hemoglobin 14.8 g/dL (13.5-17.5); Mean Corpuscular HGB CONC 31.2 g/dL (32.0-36.0); Mean Corpuscular Hemoglobin 30.9 pg (27.0-33.0); Platelet Count 224 10x3/uL (150-450); RBC Distribution Width 12.6 % (11.5-14.5); Red Blood Cell (RBC) Count 4.79 10x6/uL (4.32-5.72); White Blood Cell (WBC) Count 7.1 10x3/uL (3.5-10.5)
[2021-11-11 11:09] LABS: Anion Gap 13 mmol/L (10-20); BUN (Urea Nitrogen) 11 mg/dL (8.4-25.7); Calc. Creatinine Clearance 0 mL/min (70-130); Calcium 9.7 mg/dL (7.8-10.44); Carbon Dioxide 37 mmol/L (23-31); Chloride 98 mmol/L (98-107); Glucose 89 mg/dL (80-115); Potassium 4.1 mmol/L (3.5-5.1); Sodium 144 mmol/L (136-145)
[2021-11-11 22:45] LABS: SARS-CoV-2 PCR by NAA Not Detected (NotDetected)
== END 2021-11-11 09:26 | disposition home or self-care (01) ==
LOC: LABBT 09:25
PROVIDERS: ATTEND Orthopaedic Surgery Hand Surgery
DX: Z01.818 Encounter for other preprocedural examination (principal); M72.0 Palmar fascial fibromatosis [Dupuytren]; Z20.822 Contact with and (suspected) exposure to COVID-19
CPT/HCPCS: 80048; 81003; 85025; 93005; U0003; U0005; 93010

== ENCOUNTER 2021-11-14 08:07 | Day surgery (SDC) | payer MEDICARE ==
[2021-11-11 12:27] VITALS: BMI 32.1
[2021-11-14] MEDS ORDERED: ceFAZolin (BATCH) 2 GM/100 ML BAG ONE ×2 (09:29→12:27)
[2021-11-14] MEDS ORDERED: Lidocaine 1% MPF 2 ML VIAL ONE (09:29)
[2021-11-14] MEDS ORDERED: Fentanyl 100 MCG/2 ML VIAL ONE (11:09)
[2021-11-14] MEDS ORDERED: Ropivacaine 0.5% HCl/PF (150 MG/30 ML VIAL) ONE (11:20)
[2021-11-14] MEDS ORDERED: Bacitracin Zinc Ointment 30 gm TUBE ONE (12:18)
[2021-11-14] MEDS ORDERED: Betamet Acet/Betamet Na Ph 30 MG/5 ML VIAL ONE (12:18)
[2021-11-14] MEDS ORDERED: Bupivacaine PF 0.5% 30 ML VIAL ONE (12:18)
[2021-11-14] MEDS ORDERED: Midazolam HCl 2 mg/2 ml Vial ONE (12:24)
[2021-11-14] MEDS ORDERED: Ketamine 50 MG/ML (10ML VIAL) ONE (12:25)
[2021-11-14] MEDS ORDERED: fentaNYL Citrate/PF 100 MCG/2 ML SYRINGE ONE (12:25)
[2021-11-14] MEDS ORDERED: Propofol 500 MG/50 ML VIAL ONE (12:25)
[2021-11-14] MEDS ORDERED: Famotidine/PF 20 mg/2ml Vial ONE (12:25)
[2021-11-14] MEDS ORDERED: Ketorolac Tromethamine 30 MG/ML VIAL ONE (15:04)
== END 2021-11-14 16:25 | disposition home or self-care (01) ==
LOC: SDC 08:07
PROVIDERS: ATTEND Orthopaedic Surgery Hand Surgery
PROC: 0JNJ0ZZ Release Right Hand Subcutaneous Tissue and Fascia, Open Approach (ICD-10-PCS; principal; 2021-11-14)
PROC: 0LN70ZZ Release Right Hand Tendon, Open Approach (ICD-10-PCS; 2021-11-14)
PROC: 0LN70ZZ Release Right Hand Tendon, Open Approach (ICD-10-PCS; 2021-11-14)
PROC: 0LN70ZZ Release Right Hand Tendon, Open Approach (ICD-10-PCS; 2021-11-14)
DX: M72.0 Palmar fascial fibromatosis [Dupuytren] (principal); J44.9 Chronic obstructive pulmonary disease, unspecified; I10 Essential (primary) hypertension; Z87.891 Personal history of nicotine dependence; Z79.52 Long term (current) use of systemic steroids; Z79.82 Long term (current) use of aspirin; Z79.899 Other long term (current) drug therapy; Z98.84 Bariatric surgery status
CPT/HCPCS: 88304; J0690; J0702; J1885; J2250; J2704; J2795; J3010; S0020; S0028

== ENCOUNTER 2021-12-11 16:55 | Inpatient (IN) | payer MEDICARE ==
[2021-12-11 17:54] LABS: #Eosinphils 0.1 thou/uL (0.0-0.7); #Lymphocytes 1.2 thou/uL (1.20-3.40); #Monocytes 0.7 thou/uL (0.11-0.59); #Neutrophils 9.8 thou/uL (1.40-6.50); %Basophils 0.1 % (0.0-1.0); %Eosinophils 0.7 % (0.0-10.0); %Lymphocytes 10.1 % (21.0-51.0); %Monocytes 6.3 % (0.0-10.0); %Neutrophils 82.8 % (42.0-75.0); Hemoglobin 16.4 g/dL (14.0-18.0); Mean Corpuscular HGB CONC 31.1 g/dL (32.0-36.0); Mean Corpuscular Hemoglobin 31.5 pg (27.0-31.0); Mean Platelet Volume 6.9 fL (7.4-10.4); Platelet Count 206 thou/uL (130-400); RBC Distribution Width 11.8 % (11.5-14.5); Red Blood Cell (RBC) Count 5.21 mill/uL (4.70-6.10); White Blood Cell (WBC) Count 11.8 thou/uL (4.8-10.8)
[2021-12-11 18:15] LABS: ALT (SGPT) 15 U/L (8-55); AST (SGOT) 36 U/L (5-34); Alkaline Phosphatase 67 U/L (40-110); Anion Gap 15 mmol/L (10-20); BUN (Urea Nitrogen) 17 mg/dL (8.4-25.7); Bilirubin, Total 1.1 mg/dL (0.2-1.2); Calc. Creatinine Clearance 0 mL/min (70-130); Calcium 9.6 mg/dL (7.8-10.44); Carbon Dioxide 33 mmol/L (23-31); Chloride 97 mmol/L (98-107); Globulin 4.1 g/dL (2.4-3.5); Glucose 87 mg/dL (80-115); Potassium 4.8 mmol/L (3.5-5.1); Protein, Total 8.1 g/dL (5.8-8.1); Sodium 140 mmol/L (136-145)
[2021-12-11] MEDS ORDERED: Magnesium 2 GM/50 ML BAG (IN WATER) ONE (19:34)
[2021-12-11] MEDS ORDERED: Ipratropium Bromide 2.5 ml Neb ONE ×3 (19:49→21:18)
[2021-12-11] MEDS ORDERED: methylPREDNISolone Sod Succ/PF 125 MG/2 ML VIAL ONE (20:25)
[2021-12-11] MEDS ORDERED: Albuterol Sulfate 2.5 mg/3 ml Neb ONE ×2 (21:13→21:18)
[2021-12-11 22:17] LABS: Bilirubin Negative (Negative); Blood, Urine 3+ (Negative); Clarity Turbid (Clear); Glucose, Urine (Dipstick) Normal (Negative); Ketone, Urine 60 mg/dL (Negative); Leukocyte 75 Leu/uL (Negative); Nitrite Negative (Negative); Protein, Urine (Dipstick) 50 mg/dL (Neg-Trace); Specific Gravity, Urine 1.024 (1.002-1.036); Squamous Epithelial None Seen HPF (0-3); Urobilinogen Normal mg/dL (Less than 2); pH, Urine 5.5 (5.0-9.0)
[2021-12-11 22:18] LABS: Bacteria/HPF None Seen HPF (None Seen)
[2021-12-11] MEDS ORDERED: Cefepime 2 GM VIAL ONE (22:52)
[2021-12-11] MEDS ORDERED: Ondansetron PF 4 MG/2 ML Vial IVP PRN (23:00)
[2021-12-11] MEDS ORDERED: Ondansetron ODT 4 MG TAB SL PRN (23:00)
[2021-12-11] MEDS ORDERED: Acetaminophen 325 MG TAB PO PRN (23:00)
[2021-12-11 23:37] LABS: Analyzer IN Cardio ER; Base Excess (BEa) 4.2 mEq/L (-2.0 to +3.0); Calcium, Ionized (arterial) 1.14 mmol/L (1.12-1.30); Carboxyhemoglobin (COHb) 0.7 gm% (0.0-3.0); O2 Tension (PaO2), arterial 102.3 mmHg (> 70.0); Potassium - ABG Lab 4.07 mmol/L (3.70-5.30); pH, Arterial 7.31 (7.35-7.45)
[2021-12-11 23:40] LABS: CO2 Tension 67.2 mmHg (35.0-45.0); Puncture Site LRA
[2021-12-12 00:22] LABS: SARS-CoV-2 NAA Rapid Test Not Detected (NotDetected)
[2021-12-12 00:42] VITALS: BMI 35.4
[2021-12-12] MEDS: methylPREDNISolone Sod Succ 40 MG VIAL IVP SCH ×4 (00:58→17:45)
[2021-12-12] MEDS: cefTRIAXone\\ROCEPHIN 1 GM in Sodium Chloride 0.9% 100 ML IVPB SCH (00:58)
[2021-12-12] MEDS ORDERED: Albuterol Sulfate 2.5 mg/3 ml Neb NEB SCH (02:30)
[2021-12-12] MEDS ORDERED: Ipratropium Bromide 2.5 ml Neb NEB SCH (02:30)
[2021-12-12 03:17] LABS: #Lymphocytes 0.4 thou/uL (1.20-3.40); #Monocytes 0.1 thou/uL (0.11-0.59); #Neutrophils 9.4 thou/uL (1.40-6.50); %Basophils 0.1 % (0.0-1.0); %Eosinophils 0.1 % (0.0-10.0); %Lymphocytes 3.9 % (21.0-51.0); %Monocytes 1.3 % (0.0-10.0); %Neutrophils 94.8 % (42.0-75.0); Hemoglobin 14.6 g/dL (14.0-18.0); Mean Corpuscular HGB CONC 31.2 g/dL (32.0-36.0); Mean Corpuscular Hemoglobin 31.9 pg (27.0-31.0); Platelet Count 179 thou/uL (130-400); RBC Distribution Width 11.9 % (11.5-14.5); Red Blood Cell (RBC) Count 4.58 mill/uL (4.70-6.10); White Blood Cell (WBC) Count 9.9 thou/uL (4.8-10.8)
[2021-12-12 04:12] LABS: Albumin 3.6 g/dL (3.4-4.8); Anion Gap 15 mmol/L (10-20); BUN (Urea Nitrogen) 21 mg/dL (8.4-25.7); BUN/Creatinine Ratio 26.58; Calc. Creatinine Clearance 126 mL/min (70-130); Calcium 9.1 mg/dL (7.8-10.44); Carbon Dioxide 31 mmol/L (23-31); Chloride 99 mmol/L (98-107); Glucose 151 mg/dL (80-115); Phosphorus 2.7 mg/dL (2.3-4.7); Potassium 4.4 mmol/L (3.5-5.1); Sodium 141 mmol/L (136-145)
[2021-12-12] MEDS: Enoxaparin Sodium 40 MG/0.4 ML SYRINGE SC SCH (08:30)
[2021-12-12] MEDS: Azithromycin 250 MG TAB PO SCH (08:30)
[2021-12-12] MEDS: Benzonatate 100 MG CAP PO SCH (20:19)
[2021-12-12] MEDS: guaiFENesin ER 600 MG TAB PO SCH (20:19)
[2021-12-12] MEDS ORDERED: Aspirin Chewable 81 MG TAB PO SCH (21:00)
[2021-12-13] MEDS: methylPREDNISolone Sod Succ 40 MG VIAL IVP SCH ×3 (00:01→13:58)
[2021-12-13] MEDS: cefTRIAXone\\ROCEPHIN 1 GM in Sodium Chloride 0.9% 100 ML IVPB SCH (00:01)
[2021-12-13 04:09] VITALS: TEMP 98.6
[2021-12-13] MEDS: Azithromycin 250 MG TAB PO SCH (08:49)
[2021-12-13] MEDS: Benzonatate 100 MG CAP PO SCH (08:49)
[2021-12-13] MEDS: guaiFENesin ER 600 MG TAB PO SCH (08:49)
[2021-12-13] MEDS: Enoxaparin Sodium 40 MG/0.4 ML SYRINGE SC SCH (08:50)
== END 2021-12-13 15:10 | disposition home or self-care (01) | DRG 189 ==
LOC: ERS 16:55 → CCU 22:41
PROVIDERS: ADMIT Hospitalist; ATTEND Hospitalist
PROC: 5A09357 Assistance with Respiratory Ventilation, Less than 24 Consecutive Hours, Continuous Positive Airway Pressure (ICD-10-PCS; principal; 2021-12-11)
DX: J96.21 Acute and chronic respiratory failure with hypoxia (principal); N39.0 Urinary tract infection, site not specified; Z20.822 Contact with and (suspected) exposure to COVID-19; J43.9 Emphysema, unspecified; J96.22 Acute and chronic respiratory failure with hypercapnia; I48.0 Paroxysmal atrial fibrillation; I15.2 Hypertension secondary to endocrine disorders; F10.10 Alcohol abuse, uncomplicated; Z96.653 Presence of artificial knee joint, bilateral; Z99.81 Dependence on supplemental oxygen; Z79.82 Long term (current) use of aspirin; Z79.51 Long term (current) use of inhaled steroids; Z79.52 Long term (current) use of systemic steroids; Z79.899 Other long term (current) drug therapy; Z98.84 Bariatric surgery status; Z87.891 Personal history of nicotine dependence; Z86.718 Personal history of other venous thrombosis and embolism
CPT/HCPCS: 36415; 36600; 71045; 80053; 80069; 81003; 81015; 82805; 85025; 87040; 93005; 94640; 96365; 96367; 96375; J0692; J0696; J1650; J2920; J2930; J3475; J3490; J7611; J7620; U0002